=== PATIENT | male | born 1990 | race Caucasian/White ===

== ENCOUNTER 2016-04-04 03:05 | Emergency (ER) | payer OTHER ==
[2016-04-04 03:19] VITALS: BP 131/78; TEMP 98.7; BMI 45.6
--- NOTE | 2016-04-04 03:47 | PDOC ---
History of Present Illness - General History Source: Patient Exam Limitations: No Limitations - History of Present Illness Initial Comments: 04/04/16 04:56 The patient is a 26 year old male with significant past medical history of multiple sclerosis diagnosed at age 4 and last flare up was 2 years ago that involved double vision who presents to the ED with 1 day of right sided unilateral contractions of the face, arm, and leg. Patient reports at 9:30 yesterday morning he had a wisdom tooth extraction. He was given local anesthetics both as an injection in his right cheek and as an IV in his right hand. At midnight he noted his first episode of right sided contraction that resulted in numbness and tingling of the face and hand with prolonged numbness in right hand. Since the first episode, he has had 4 episodes, including two of them here in the ER. The patient denies fever, chills, cough, SOB, chest pain, and palpitations. The patient denies abdominal pain, nausea, vomiting, and diarrhea. Allergies: glatiramer acetate Social History: No alcohol, tobacco, or drug use reported. Past Surgical History: hernia repair PCP: Dr. Mily Armstrong Neuro: Dr. Alba (has not seen in over a year) <Michelle Bejarano - Last Filed: 04/04/16 05:34> - General History Source: Patient <FernandoBob boles - Last Filed: 04/04/16 19:33> - General Chief Complaint: Toothache Stated Complaint: NUMBNESS ON RIGHT SIDE Time Seen by Provider: 04/04/16 03:47 Past History <Michelle Bejarano - Last Filed: 04/04/16 05:34> - Surgical History Abdominal Surgery: Yes (HERNIA) - Immunization History Immunization Up to Date: Yes (2011) - Psycho/Social/Smoking Cessation Hx Anxiety: No Suicidal Ideation: No Smoking Status: Yes Smoking History: Never smoked Have you smoked in the past 12 months: No Number of Cigarettes Smoked Daily: 1 Information on smoking cessation initiated: No 'Breaking Loose' booklet given: 10/26/13 Hx Alcohol Use: No Drug/Substance Use Hx: No <Bob Sanchez - Last Filed: 04/04/16 19:33> - Past Medical History Allergies/Adverse Reactions: Allergies Allergy/AdvReac Type Severity Reaction Status Date / Time glatiramer acetate AdvReac Verified 04/04/16 03:17 [From Copaxone] Home Medications: Ambulatory Orders Interferon Beta-1B [Betaseron] 0.3 mg SQ Q48H 10/26/13 Acetaminophen [Tylenol .Regular Strength -] 325 mg PO Q4H PRN #0 tablet Ibuprofen [Motrin -] 400 mg PO Q8H PRN #0 tablet 10/28/13 Diazepam [Valium] 5 mg PO Q8H PRN #21 tablet MDD 3 04/04/16 Review of Systems - Review of Systems Able to Perform ROS?: Yes Comments:: 04/04/16 04:56 CONSTITUTIONAL: Absent: fever, no chills, no fatigue EYES: Absent: visual changes ENT: Absent: ear pain, no sore throat CARDIOVASCULAR: Absent: chest pain, no palpitations RESPIRATORY: Absent: cough, no SOB GI: Absent: abdominal pain, no nausea, no vomiting, no constipation, no diarrhea GENITOURINARY: Absent: dysuria, no frequency, no hematuria MUSKULOSKELETAL: +right sided unilateral contractions of the face, arm, and leg Absent: back pain SKIN: Absent: rash NEURO: Absent: headache <Michelle Bejarano - Last Filed: 04/04/16 05:34> *Physical Exam - Vital Signs Last Vital Signs Temp Pulse Resp BP Pulse Ox 98.7 F 75 18 131/78 100 04/04/16 03:14 04/04/16 03:14 04/04/16 03:14 04/04/16 03:14 04/04/16 03:14 - Physical Exam Comments: 04/04/16 04:56 GENERAL: Pt is morbidly obese. Well-appearing, well-nourished. No apparent distress. HEENT: Normocephalic, atraumatic. PERRL, EOM intact. CARDIOVASCULAR: Normal S1, S2. Regular rate and rhythm. PULMONARY: Clear to auscultation bilaterally. ABDOMEN: Soft, non-distended, non-tender. EXTREMITIES: Normal ROM in all four extremities. No gross deformities. SKIN: Warm, dry. No rash NEUROLOGICAL: No focal neurological deficits. <Michelle Bejarano - Last Filed: 04/04/16 05:34> - Vital Signs Last Vital Signs Temp Pulse Resp BP Pulse Ox 98.7 F 75 18 131/78 100 04/04/16 03:14 04/04/16 03:14 04/04/16 03:14 04/04/16 03:14 04/04/16 03:14 <Bob Sanchez - Last Filed: 04/04/16 19:33> ED Treatment Course - RADIOLOGY Radiograph Interpretation: 04/04/16 05:34 EXAM: CT brain without contrast Reviewed by Imaging protection engineer: FINDINGS: No acute intracranial abnormality. No bleed. No visible infarct or mass. <Michelle Bejarano - Last Filed: 04/04/16 05:34> - LABORATORY CBC & Chemistry Diagram: 04/04/16 05:17 04/04/16 05:17 <Bob Sanchez - Last Filed: 04/04/16 19:33> Medical Decision Making - Medical Decision Making 04/04/16 19:33 Dr. Sanchez: The scribe's documentation has been prepared under my direction and personally reviewed by me in its entirery. I confirm that the note above accurately reflects all work, treatment, procedures, and medical decision making performed by me. <Bob Sanchez - Last Filed: 04/04/16 19:33> *DC/Admit/Observation/Transfer - Attestations Scribe Attestion: 04/04/16 04:56 Documentation prepared by Michelle Bejarano, acting as diagnostic medical sonographer for Bob Sanchez MD <Michelle Bejarano - Last Filed: 04/04/16 05:34> - Discharge Dispostion Admit: No <Bob Sanchez - Last Filed: 04/04/16 19:33> Diagnosis at time of Disposition: Multiple sclerosis - Discharge Dispostion Disposition: HOME - Prescriptions Prescriptions: Diazepam [Valium] 5 mg PO Q8H PRN #21 tablet MDD 3 PRN Reason: Pain - Referrals Referrals: Mily Armstrong MD [Primary Care Provider] - Gokul Lo MD [Staff Physician] - - Patient Instructions Printed Discharge Instructions: DI for Anxiety -- Adult Additional Instructions: Return to the emergency department immediately with ANY new, persistent or worsening symptoms. You MUST call and follow up with your doctor tomorrow. Please make sure your doctor reviews the results of your emergency department evaluation.
[2016-04-04 06:29] LABS: BASOPHIL 0.6 % (0-2.0); EOSINOPHIL 5.5 % (0-4.5); MCH 29.2 pg (25.7-33.7); MEAN CELL VOLUME 88.4 fl (80-96); MEAN PLT VOLUME 7.9 fl (7.5-11.1); NEUTROPHILS 54.3 % (42.8-82.8); PLATELET COUNT 332 K/MM3 (134-434); RDW 13.2 % (11.9-15.9); WHITE BLOOD COUNT 9.8 K/mm3 (4.0-10.0)
[2016-04-04] MEDS ORDERED: diazePAM 5 MG TABLET PO ONE (06:52)
--- NOTE | 2016-04-04 07:11 | PDOC ---
*Physical Exam - Vital Signs Last Vital Signs Temp Pulse Resp BP Pulse Ox 98.7 F 75 18 131/78 100 04/04/16 03:14 04/04/16 03:14 04/04/16 03:14 04/04/16 03:14 04/04/16 03:14 - Physical Exam Comments: 04/04/16 07:09 Sign-out received from outgoing Emergency Physician Pt interviewed and examined Both he and his significant other are reporting that he has had increased anxiety over the past several months, and that he also has felt "tight all over, " primarily in the shoulders, but also in the upper and lower extremities. It tends to be more severe on the right side. They have not seen their neurologist for this, but do have an appointment next week Ancillary studies reviewed Clinical impression: Anxiety Muscle spasm, likely secondary to multiple sclerosis I discussed the physical exam findings, ancillary test results and final diagnoses with the patient. I answered all of the patient's questions. The patient was satisfied with the care received and felt comfortable with the discharge plan and treatment plan. The patient will call their primary care physician within 24 hours to arrange follow-up and will return to the Emergency Department with any new, persistent or worsening symptoms. ED Treatment Course - LABORATORY CBC & Chemistry Diagram: 04/04/16 05:17 04/04/16 05:17 - ADDITIONAL ORDERS Additional order review: 04/04/16 05:17 RBC 5.10 MCV 88.4 MCHC 33.0 RDW 13.2 MPV 7.9 Neutrophils % 54.3 D Lymphocytes % 31.2 D Monocytes % 8.4 Eosinophils % 5.5 H Basophils % 0.6 *DC/Admit/Observation/Transfer Diagnosis at time of Disposition: Multiple sclerosis - Discharge Dispostion Disposition: HOME - Prescriptions Prescriptions: Diazepam [Valium] 5 mg PO Q8H PRN #21 tablet MDD 3 PRN Reason: Pain - Referrals Referrals: Gokul Lo MD [Staff Physician] - Mily Armstrong MD [Primary Care Provider] - - Patient Instructions Printed Discharge Instructions: DI for Anxiety -- Adult Additional Instructions: Return to the emergency department immediately with ANY new, persistent or worsening symptoms. You MUST call and follow up with your doctor tomorrow. Please make sure your doctor reviews the results of your emergency department evaluation. - Post Discharge Activity
[2016-04-04] MEDS ORDERED: diazePAM 5 MG TABLET ONE (07:14)
[2016-04-04 07:40] VITALS: PULSE 92
[2016-04-04 08:05] LABS: ALBUMIN 4.1 g/dl (3.4-5.0); ALK PHOS 82 U/L (45-117); ANION GAP 7 (8-16); BILIRUBIN,TOTAL 0.4 mg/dL (0.2-1.0); CALCIUM 9.1 mg/dL (8.5-10.1); CO2 27 mmol/L (21-32); CREATININE 1.1 mg/dL (0.7-1.3); GLUCOSE,RANDOM 95 mg/dL (74-106); MAGNESIUM 2.3 mg/dL (1.8-2.4); SGOT/AST 31 U/L (15-37); SGPT/ALT 52 U/L (12-78); TOT PROT 8.1 g/dl (6.4-8.2)
== END 2016-04-04 08:34 | disposition home or self-care (01) ==
LOC: JER 03:05
DX: K08.89 Other specified disorders of teeth and supporting structures (principal); G35 Multiple sclerosis
CPT/HCPCS: 36415; 70450-TC; 80053; 83735; 85025; 99283-25

== ENCOUNTER 2017-09-21 20:10 | Inpatient (IN) | payer OTHER ==
--- NOTE | 2017-09-21 21:56 | PDOC ---
History of Present Illness <Susannah Calderon - Last Filed: 09/22/17 00:58> - General History Source: Patient Exam Limitations: No Limitations - History of Present Illness Initial Comments: 09/22/17 01:55 The patient is a 27-year-old male with PMH of MS (on remission) and obesity presents to the ED c/o R. arm swelling for the past 3-4 days. Patient presents with a worsening swelling/redness w/ pain to the R. posterior arm radiating to the R. lateral breast, initially appeared as a cyst, which progressed. The patient reports the pain is aggravated by movement or touch, no relief noted with gold luna powder or ibuprofen. The patient reports an acute onset of subjective fever since today. Patient reports a similar incident in the past s/ p falling down the stairs, was seen at the ED. The patient states the provider made an incision near the buttock region and drained the clot, reports the procedure was called honeycomb bite. Patient reports a recent flare-up of MS to the joints, states he had trouble with ambulation and had to use a cane for an assist. Patient reports he was treated with 4 days IV steroids followed by 10 days pills. Denies chills, cough or a headache. Denies chest pain, shortness of breath or palpitations. Denies abdominal pain, back pain or neck pain. Denies dysuria, hematuria, frequency or urgency to urinate. Denies nausea or vomiting. Denies diarrhea or constipation. Allergies: interferon beta-1b and glatiramer acetate Surgical history: Hernia Repair (in 9th grade) and abcess removed (middle school age). Social history: None reported. PCP: Dr. Vito Armstrong <Marie Belle - Last Filed: 09/22/17 02:09> - General Chief Complaint: SIRS, Suspected/Possible Stated Complaint: RASH Time Seen by Provider: 09/21/17 21:56 Past History - Past Medical History COPD: No Other medical history: MS,obesity - Surgical History Abdominal Surgery: Yes (HERNIA) GI Surgery: Yes (Hernia Repair) - Immunization History Immunization Up to Date: Yes (2011) - Suicide/Smoking/Psychosocial Hx Smoking Status: Yes Smoking History: Never smoked Have you smoked in the past 12 months: No Number of Cigarettes Smoked Daily: 1 'Breaking Loose' booklet given: 10/26/13 Hx Alcohol Use: No Drug/Substance Use Hx: No Substance Use Type: None <Susannah Calderon - Last Filed: 09/22/17 00:58> <Marie Belle - Last Filed: 09/22/17 02:09> - Past Medical History Allergies/Adverse Reactions: Allergies Allergy/AdvReac Type Severity Reaction Status Date / Time interferon beta-1b Allergy Verified 09/21/17 20:23 [From Betaseron] glatiramer acetate AdvReac Verified 04/04/16 03:17 [From Copaxone] Home Medications: Ambulatory Orders Interferon Beta-1B [Betaseron] 0.3 mg SQ Q48H 10/26/13 Acetaminophen [Tylenol .Regular Strength -] 325 mg PO Q4H PRN #0 tablet Ibuprofen [Motrin -] 400 mg PO Q8H PRN #0 tablet 10/28/13 Diazepam [Valium] 5 mg PO Q8H PRN #21 tablet MDD 3 04/04/16 Review of Systems - Review of Systems Able to Perform ROS?: Yes Comments:: 09/22/17 02:00 GENERAL/CONSTITUTIONAL: No fever or chills. No weakness. HEAD, EYES, EARS, NOSE AND THROAT: No change in vision. No ear pain or discharge. No sore throat. CARDIOVASCULAR: No chest pain or shortness of breath. RESPIRATORY: No cough, wheezing, or hemoptysis. GASTROINTESTINAL: No nausea, vomiting, diarrhea or constipation. GENITOURINARY: No dysuria, frequency, or change in urination. MUSCULOSKELETAL: No joint or muscle swelling or pain. No neck or back pain. SKIN: No rash EXTREMITY: (+) R. arm swelling/redness and pain. NEUROLOGIC: No headache, vertigo, loss of consciousness, or change in strength/ sensation. ENDOCRINE: No increased thirst. No abnormal weight change. HEMATOLOGIC/LYMPHATIC: No anemia, easy bleeding, or history of blood clots. ALLERGIC/IMMUNOLOGIC: No hives or skin allergy. <Marie Belle - Last Filed: 09/22/17 02:09> *Physical Exam - Vital Signs Last Vital Signs Temp Pulse Resp BP Pulse Ox 100.1 F H 111 H 20 149/119 98 09/21/17 20:14 09/21/17 20:14 09/21/17 20:14 09/21/17 20:14 09/21/17 20:14 <Susannah Calderon - Last Filed: 09/22/17 00:58> - Vital Signs Last Vital Signs Temp Pulse Resp BP Pulse Ox 100.1 F H 111 H 20 149/119 98 09/21/17 20:14 09/21/17 20:14 09/21/17 20:14 09/21/17 20:14 09/21/17 20:14 - Physical Exam Comments: 09/22/17 01:59 GENERAL: Awake, alert, and fully oriented, in no acute distress HEAD: No signs of trauma EYES: PERRLA, EOMI, sclera anicteric, conjunctiva clear ENT: Auricles normal inspection, hearing grossly normal, nares patent, oropharynx clear without exudates. Moist mucosa NECK: Normal ROM, supple, no lymphadenopathy, JVD, or masses LUNGS: Breath sounds equal, clear to auscultation bilaterally. No wheezes, and no crackles HEART: Regular rate and rhythm, normal S1 and S2, no murmurs, rubs or gallops ABDOMEN: Soft, nontender, normoactive bowel sounds. No guarding, no rebound. No masses EXTREMITIES: (+)Cellulitis of the L. axilla, primarily to the mid-axillary to the posterior, going around to the back. Well demarcated around the cellulitis. Pain and swelling throughout the adnexa. Rest of the extremity: Normal range of motion, no edema. No clubbing or cyanosis. No cords, erythema, or tenderness NEUROLOGICAL: Cranial nerves II through XII grossly intact. Normal speech, normal gait SKIN: Warm, Dry, normal turgor, no rashes or lesions noted. <Marie Belle - Last Filed: 09/22/17 02:09> Heart Score/ECG Review - ECG Impressions Comment:: 09/22/17 02:[address] Calderon at 23:39 Sinus tachycardia with Vent. rate of 104 bpm, LA interval of 134 ms, QRS duration 84 ms, QT/QTc of 314/418 ms and P-R-T axes (26)(54)(22). <Marie Belle - Last Filed: 09/22/17 02:09> ED Treatment Course - LABORATORY CBC & Chemistry Diagram: 09/21/17 22:57 07/01/18 22:57 <Susannah Calderon - Last Filed: 09/22/17 00:58> - LABORATORY CBC & Chemistry Diagram: 09/21/17 22:57 09/21/17 22:57 - ADDITIONAL ORDERS Additional order review: Laboratory Results 09/21/17 09/21/17 09/21/17 22:57 22:57 00:01 Sodium 137 Potassium 4.2 Chloride 102 Carbon Dioxide 30 Anion Gap 5 L BUN 12 Creatinine 0.9 Creat Clearance w eGFR > 60 Random Glucose 92 Lactic Acid 1.4 Calcium 8.5 Total Bilirubin 0.5 AST 40 H D ALT 72 D Alkaline Phosphatase 93 Creatine Kinase 114 Troponin I < 0.02 Total Protein 6.8 Albumin 2.8 L 09/21/17 22:57 RBC 4.63 MCV 89.4 MCHC 32.7 RDW 14.1 MPV 8.1 Neutrophils % 78.9 D Lymphocytes % 9.7 D Monocytes % 9.1 Eosinophils % 1.9 Basophils % 0.4 - Medications Given in the ED: ED Medications Discontinued Medications Generic Name Dose Route Start Last Admin Trade Name Jes PRN Reason Stop Dose Admin Acetaminophen 1,000 mg 09/21/17 22:56 09/21/17 23:04 Ofirmev Injection - IVPB 09/21/17 22:57 1,000 mg ONCE ONE Administration Ampicillin Sodium/Sulbactam 100 mls @ 200 mls/hr 09/21/17 23:13 09/21/17 23: 47 Sodium 3 gm/ Sodium Chloride IVPB 09/21/17 23:42 200 mls/hr ONCE ONE Administration Vancomycin HCl 1,000 mg/ 250 mls @ 250 mls/hr 09/21/17 23:13 09/21/17 23:27 Dextrose IVPB 09/22/17 00:12 250 mls/hr ONCE ONE Administration Protocol Morphine Sulfate 2 mg 09/21/17 23:13 09/21/17 23:27 Morphine Injection - IVPUSH 09/21/17 23:14 2 mg ONCE ONE Administration <Marie Belle - Last Filed: 09/22/17 02:09> *DC/Admit/Observation/Transfer - Discharge Dispostion Decision to Admit order: Yes <Susannah Calderon - Last Filed: 09/22/17 00:58> - Attestations Scribe Attestion: 09/22/17 01:55 Documentation prepared by Marie Belle, acting as medical fee clerk for Susannah Calderon MD. <Maire Belle - Last Filed: 09/22/17 02:09> Diagnosis at time of Disposition: Cellulitis, Axillary hidradenitis suppurativa - Discharge Dispostion Condition at time of disposition: Guarded
[2017-09-21] MEDS ORDERED: ACETAMINOPHEN 1000 MG/100 ML VIAL (NON FORMULARY) IVPB ONE (22:56)
[2017-09-21] MEDS ORDERED: ACETAMINOPHEN INJECTION 100 ML IVPB ONE (23:06)
[2017-09-21 23:07] LABS: BASO % 0.4 % (0-2.0); EOS % 1.9 % (0-4.5); HEMATOCRIT 41.4 % (35.4-49); HEMOGLOBIN 13.5 GM/dL (11.7-16.9); LYMPH % 9.7 % (8-40); MCH 29.2 pg (25.7-33.7); MCHC 32.7 g/dl (32.0-35.9); MEAN CELL VOLUME 89.4 fl (80-96); MEAN PLT VOLUME 8.1 fl (7.5-11.1); MONO % 9.1 % (3.8-10.2); NEUT % 78.9 % (42.8-82.8); PLATELET COUNT 278 K/MM3 (134-434); RBC 4.63 M/mm3 (4.00-5.60); RDW 14.1 % (11.9-15.9); WHITE BLOOD COUNT 24.6 K/mm3 (4.0-10.0)
[2017-09-21] MEDS ORDERED: morphine CARPU-JECT 2 MG/1 ML DISP.SYRIN IVPUSH ONE (23:13)
[2017-09-21] MEDS ORDERED: AMPICILLIN NA/SULBACTAM NA 3 GM in SODIUM CHLORIDE 100 ML IVPB ONE (23:13)
[2017-09-21] MEDS ORDERED: VANCOMYCIN 1,000 MG in DEXTROSE 5%-WATER - 250 ML IVPB ONE (23:13)
[2017-09-21] MEDS ORDERED: ONDANSETRON 4 MG/2 ML VIAL ONE (23:20)
[2017-09-21] MEDS ORDERED: VANCOMYCIN 1 GRAM (PRE-DOCKED) 1,000 MG/250 ML BAG IVPB ONE (23:20)
[2017-09-21] MEDS ORDERED: morphine SULFATE 4 MG/ML VIAL ONE (23:20)
[2017-09-21 23:26] LABS: ALBUMIN 2.8 g/dl (3.4-5.0); ALK PHOS 93 U/L (45-117); ANION GAP 5 (8-16); BILIRUBIN,TOTAL 0.5 mg/dL (0.2-1.0); BLOOD UREA NITROGEN 12 mg/dL (7-18); CALCIUM 8.5 mg/dL (8.5-10.1); CHLORIDE 102 mmol/L (98-107); CO2 30 mmol/L (21-32); CREATININE 0.9 mg/dL (0.7-1.3); GLUCOSE,RANDOM 92 mg/dL (74-106); POTASSIUM 4.2 mmol/L (3.5-5.1); SGOT/AST 40 U/L (15-37); SGPT/ALT 72 U/L (12-78); SODIUM 137 mmol/L (136-145); TOT PROT 6.8 g/dl (6.4-8.2)
[2017-09-21 23:50] LABS: PLATELET ESTIMATE ADEQUATE
[2017-09-22] MEDS ORDERED: VANCOMYCIN 1,250 MG in DEXTROSE 5%-WATER - 250 ML IVPB ONE (01:44)
--- NOTE | 2017-09-22 01:54 | HP ---
CHIEF COMPLAINT: redness / pain to right axilla PCP: Nathaniel HISTORY OF PRESENT ILLNESS: This is a 27 year old male with a significant past medical history of MS who is s/p high dose steroid treatment 2 weeks ago who presented to the ED with a 5-6 day history of redness, pain and swelling to right axilla. Pt reports initially the axilla was only a little red and then it slowly progressed until 2 days ago it was bright red with increased swelling and pain. He also reports "blisters" came out on it and one "popped" today. He reports fever 101+ today. ER course was notable for: (1) WBC 24.6 (2) T 100.1, P 111 (3) given vanc 1g and unasyn 3g Recent Travel: pt denies PAST MEDICAL HISTORY: MS, obesity, abscess buttock 2013 requiring I&D PAST SURGICAL HISTORY: I&D buttock 2013 right inguinal hernia repair age 11 Social History: Smoking: pt denies Alcohol: 3x per year Drugs: daily 3-4 times daily marijuana use Family History: mother alive and well father s/p [place] in his 50s, CHF one brother with no medical problems Allergies interferon beta-1b [From Betaseron] Allergy (Verified 09/21/17 20:23) glatiramer acetate [From Copaxone] Adverse Reaction (Verified 04/04/16 03:17) HOME MEDICATIONS: 3 Medication Instructions Recorded Interferon Beta-1B [Betaseron] 0.3 mg SQ Q48H 10/26/13 Acetaminophen [Tylenol .Regular 325 mg PO Q4H PRN #0 tablet 10/28/13 Strength -] Ibuprofen [Motrin -] 400 mg PO Q8H PRN #0 tablet 10/28/13 Diazepam [Valium] 5 mg PO Q8H PRN #21 tablet MDD 3 04/04/16 REVIEW OF SYSTEMS CONSTITUTIONAL: fever Absent: chills, diaphoresis, generalized weakness, malaise, loss of appetite, weight change HEENT: Absent: rhinorrhea, nasal congestion, throat pain, throat swelling, difficulty swallowing, mouth swelling, ear pain, eye pain, visual changes CARDIOVASCULAR: Absent: chest pain, syncope, palpitations, irregular heart rate, lightheadedness , peripheral edema RESPIRATORY: Absent: cough, shortness of breath, dyspnea with exertion, orthopnea, wheezing, stridor, hemoptysis GASTROINTESTINAL: Absent: abdominal pain, abdominal distension, nausea, vomiting, diarrhea, constipation, melena, hematochezia GENITOURINARY: Absent: dysuria, frequency, urgency, hesitancy, hematuria, flank pain, genital pain MUSCULOSKELETAL: Absent: myalgia, arthralgia, joint swelling, back pain, neck pain SKIN: Present: pain, swelling, redness right axilla Absent: rash, itching, pallor HEMATOLOGIC/IMMUNOLOGIC: Absent: easy bleeding, easy bruising, lymphadenopathy, frequent infections ENDOCRINE: Absent: unexplained weight gain, unexplained weight loss, heat intolerance, cold intolerance NEUROLOGIC: Absent: headache, focal weakness or paresthesias, dizziness, unsteady gait, seizure, mental status changes, bladder or bowel incontinence PSYCHIATRIC: Absent: anxiety, depression, suicidal or homicidal ideation, hallucinations. PHYSICAL EXAMINATION Vital Signs - 24 hr 3 09/21/17 20:14 Temperature 100.1 F H Pulse Rate 111 H Respiratory 20 Rate Blood Pressure 149/119 O2 Sat by Pulse 98 Oximetry (%) GENERAL: Awake, alert, and fully oriented, in no acute distress. HEAD: Normal with no signs of trauma. EYES: Pupils equal, round and reactive to light, extraocular movements intact, sclera anicteric, conjunctiva clear. No lid lag. EARS, NOSE, THROAT: Ears normal, nares patent, oropharynx clear without exudates. Moist mucous membranes. NECK: Normal range of motion, supple without lymphadenopathy, JVD, or masses. LUNGS: Breath sounds equal, clear to auscultation bilaterally. No wheezes, and no crackles. No accessory muscle use. HEART: Regular rate and rhythm, normal S1 and S2 without murmur, rub or gallop. ABDOMEN: Soft, nontender, not distended, normoactive bowel sounds, no guarding, no rebound, no masses. No hepatomegaly or splenomegaly. MUSCULOSKELETAL: Normal range of motion at all joints. No bony deformities or tenderness. No CVA tenderness. UPPER EXTREMITIES: 2+ pulses, warm, well-perfused. No cyanosis. No clubbing. No peripheral edema. LOWER EXTREMITIES: 2+ pulses, warm, well-perfused. No calf tenderness. No peripheral edema. NEUROLOGICAL: Cranial nerves II-XII intact. Normal speech. Normal gait. PSYCHIATRIC: Cooperative. Good eye contact. Appropriate mood and affect. SKIN: Warm, dry, normal turgor, no rashes or lesions noted, normal capillary refill. right axilla with significant swelling, redness extending posteriorly to back with blisters Laboratory Results - last 24 hr 3 09/21/17 09/21/17 09/21/17 00:01 22:57 22:57 WBC 24.6 H RBC 4.63 Hgb 13.5 Hct 41.4 MCV 89.4 MCH 29.2 MCHC 32.7 RDW 14.1 Plt Count 278 MPV 8.1 Absolute Neuts (auto) 19.4 Total Counted 100 Neutrophils % 78.9 D Neutrophils % (Manual) 78.0 Band Neutrophils % 7.0 Lymphocytes % 9.7 D Lymphocytes % (Manual) 8.0 Monocytes % 9.1 Monocytes % (Manual) 4 Eosinophils % 1.9 Basophils % 0.4 Nucleated RBC % 0 Platelet Estimate Adequate Platelet Comment No clumping noted Sodium 137 Potassium 4.2 Chloride 102 Carbon Dioxide 30 Anion Gap 5 L BUN 12 Creatinine 0.9 Creat Clearance w eGFR > 60 Random Glucose 92 Lactic Acid 1.4 Calcium 8.5 Total Bilirubin 0.5 AST 40 H D ALT 72 D Alkaline Phosphatase 93 Creatine Kinase 114 Troponin I < 0.02 Total Protein 6.8 Albumin 2.8 L EC09/21/17 23:38 Sinus tachycardia vent rate 105, QTC 420 ECG read from machine shows acute ST elevation MO, ? MARY lead 2, but poor baseline, pt asymptomatic, will repeat ECG 09/22/17 02:32 Normal sinus rhythm vent rate 84, QTC [address]/T wave changes ASSESSMENT/PLAN: 27yM with PMH MS s/p recent steroid burst presented to the ED with redness, swelling and pain to right axilla. Sepsis secondary to Cellulitis/Abscess - given unasyn 3g IVPB, will change to zosyn next dose given immunocompromised status - given vanc 1g in ED will give additional 1250mg given pt weight 150kg - ID consult - surgical consult MS - pt states he is not taking his betaseron - follow up with primary neurologist as outpatient DVT PPX - low risk, pt fully ambulatory FEN - pt tolerating po fluids, hemodynamically stable, will hold off on IVF for now - bmp in am - regular diet as tolerated Dispo: pt admitted for further treatment. Visit type - Emergency Visit Emergency Visit: Yes ED Registration Date: 09/21/17 Care time: The patient presented to the Emergency Department on the above date and was hospitalized for further evaluation of their emergent condition. - New Patient This patient is new to me today: Yes Date on this admission: 09/22/17 - Critical Care Critical Care patient: No Hospitalist Screening - Colonoscopy Questionnaire Colonoscopy Questionnaire: Colonoscopy Questionnaire - Patient: 50 - 75 years old and never had a screening colonoscopy: No History of colon or rectal polyps, or CA: No History of IBD, Crohn's disease or UC: No History of abdominal radiation therapy as a child: No - Relative: 1 with colon or rectal CA, or polyps at age 60 or younger: No Colon or rectal CA diagnosed at age 45 or younger: No Multiple relatives with colon or rectal CA: No - Outcome: Screening Result: Negative Screen
[2017-09-22] MEDS: morphine SULFATE 4 MG/ML VIAL IVPUSH PRN ×4 (04:25→20:24)
[2017-09-22] MEDS ORDERED: morphine SULFATE 4 MG/ML VIAL ONE (04:26)
[2017-09-22] MEDS ORDERED: PIPERACILLIN/TAZOB 3.375 GM 3.375 GM in DEXTROSE 5%-WATER - 50 ML IVPB ONE (06:00)
[2017-09-22] MEDS ORDERED: PIPERACILLIN/TAZOBACTAM 3.375 GM VIAL IVPB ONE (06:08)
[2017-09-22] MEDS ORDERED: DEXTROSE 5%-WATER - 50 ML IVPB ONE (06:09)
[2017-09-22 08:17] LABS: BASO % 0.3 % (0-2.0); EOS % 2.6 % (0-4.5); HEMATOCRIT 39.3 % (35.4-49); HEMOGLOBIN 13.1 GM/dL (11.7-16.9); LYMPH % 8.5 % (8-40); MCHC 33.3 g/dl (32.0-35.9); MEAN CELL VOLUME 90.2 fl (80-96); MEAN PLT VOLUME 7.9 fl (7.5-11.1); MONO % 9.7 % (3.8-10.2); NEUT % 78.9 % (42.8-82.8); PLATELET COUNT 213 K/MM3 (134-434); RBC 4.36 M/mm3 (4.00-5.60); WHITE BLOOD COUNT 22.8 K/mm3 (4.0-10.0)
[2017-09-22 08:52] LABS: ANION GAP 7 (8-16); BLOOD UREA NITROGEN 11 mg/dL (7-18); CALCIUM 8.2 mg/dL (8.5-10.1); CHLORIDE 104 mmol/L (98-107); CO2 27 mmol/L (21-32); CREATININE 0.8 mg/dL (0.7-1.3); GLUCOSE,RANDOM 89 mg/dL (74-106); MAGNESIUM 2.1 mg/dL (1.8-2.4); PHOSPHOROUS 3.2 mg/dL (2.5-4.9); POTASSIUM 3.7 mmol/L (3.5-5.1); SODIUM 138 mmol/L (136-145)
--- NOTE | 2017-09-22 10:03 | PN ---
Progress Note (short form) - Note Progress Note: ID 27 year old morbidly obese man ( 352lbs) with extensive cellulitis with abscess under right axilla extending to his back Febrile leukocytosis and history of MS with recent steroids for 10 days now off. He is not diabetic Selected Entries 09/21/17 20:14 Temperature 100.1 F H Pulse Rate 111 H Respiratory 20 Rate Blood Pressure 149/119 Laboratory Tests 09/21/17 09/21/17 22:57 22:57 WBC 24.6 H Hgb 13.5 Hct 41.4 Band Neutrophils % 7.0 BUN 12 Creat Clearance w eGFR > 60 Total Bilirubin 0.5 AST 40 H D ALT 72 D Assessment Fluctuant abscess with extensive cellulitis of the right axilla spreading on to his back Morbid obesity Plan Blood cultures 2 CRP and ESR Surgical consult for I&D Vancomcyin 2grs q 12H Zosyn 4.5grs q 6 H Selvin JASMINE Problem List - Problems (1) Cellulitis Code(s): L03.90 - CELLULITIS, UNSPECIFIED (2) Abscess Code(s): L02.91 - CUTANEOUS ABSCESS, UNSPECIFIED (3) Obesity Code(s): E66.9 - OBESITY, UNSPECIFIED (4) Multiple sclerosis Code(s): G35 - MULTIPLE SCLEROSIS
--- NOTE | 2017-09-22 10:28 | CONSULT ---
Consult Consult Specialty:: General Surgery Referred by:: Nathaniel JASMINE Reason for Consultation:: Axillary Abscess - History of Present Illness Chief Complaint: Right chest wall infection History of Present Illness: 27 yo male with PMH Morbid obesity, MS who is s/p high dose steroid treatment 2 weeks ago who presented to the ED with a 5-6 day history of redness, pain and swelling to right right chest wall. He reports initially the axilla was only a little red and then it slowly progressed until 2 days ago it was bright red with increased swelling and pain. He also reports "blisters" came out on it and one "popped" today. He reports fever 101+ today. He has no personal history of similar infection or MRSA. We were asked to assess. - History Source History Provided By: Patient, Medical Record Limitations to Obtaining History: No Limitations - Past Medical History [employer]: Yes: Multiple Sclerosis Additional Medical History: Multiple sclerosis, Morbid obesity - Alcohol/Substance Use Hx Alcohol Use: No - Smoking History Smoking history: Never smoked Have you smoked in the past 12 months: No Aproximately how many cigarettes per day: 1 - Social History Place of : [facility] History of Recent Travel: No Home Medications - Allergies Allergies/Adverse Reactions: Allergies Allergy/AdvReac Type Severity Reaction Status Date / Time interferon beta-1b Allergy Verified 09/21/17 20:23 [From Betaseron] glatiramer acetate AdvReac Verified 04/04/16 03:17 [From Copaxone] - Home Medications Home Medications: Ambulatory Orders Interferon Beta-1B [Betaseron] 0.3 mg SQ Q48H 10/26/13 Acetaminophen [Tylenol .Regular Strength -] 325 mg PO Q4H PRN #0 tablet Ibuprofen [Motrin -] 400 mg PO Q8H PRN #0 tablet 10/28/13 Diazepam [Valium] 5 mg PO Q8H PRN #21 tablet MDD 3 04/04/16 Review of Systems - Review of Systems Constitutional: reports: Fever. denies: Chills Eyes: denies: Blurred Vision, Recent Change in Vision HENT: denies: Difficult Swallowing, Toothache Neck: denies: Decreased ROM, Swollen Glands Cardiovascular: denies: Chest Pain, Palpitations Respiratory: denies: Cough, SOB Gastrointestinal: denies: Abdominal Pain, Constipation, Diarrhea Genitourinary: denies: Discharge, Dysuria Musculoskeletal: reports: Muscle Weakness. denies: Extremity Pain Integumentary: reports: Erythema (Right chest wall per HPI) Neurological: denies: Confusion, Dizziness, Seizure, Syncope Endocrine: denies: Unexplained Weight Gain, Unexplained Weight Loss Hematology/Lymphatic: denies: Easily Bruised, Excessive Bleeding Psychiatric: denies: Anxiety, Depression Physical Exam Vital Signs: Vital Signs Temperature 100.1 F H 09/21/17 20:14 Pulse Rate 101 H 09/22/17 04:48 Respiratory Rate 18 09/22/17 04:48 Blood Pressure 140/89 09/22/17 04:48 O2 Sat by Pulse Oximetry (%) 99 09/22/17 04:48 Constitutional: Yes: No Distress, Calm, Obese Eyes: Yes: Conjunctiva Clear, EOM Intact HENT: Yes: Atraumatic, Normocephalic Neck: Yes: Supple, Trachea Midline Cardiovascular: Yes: Regular Rate and Rhythm, S1, S2 Respiratory: Yes: Regular, CTA Bilaterally, Other (Right lateral chest wall 20cm ^2 with central ruptured blister) Gastrointestinal: Yes: Normal Bowel Sounds, Soft, Abdomen, Obese. No: Tenderness ...Rectal Exam: No: Deferred Renal/: No: CVA Tenderness - Left, CVA Tenderness - Right Musculoskeletal: No: Muscle Pain, Muscle Weakness Extremities: No: Cool, Cyanosis Integumentary: Yes: Erythema (Right lateral chest wall/ lower axilla 20cm^2 indurated non-fluctant) Wound/Incision: Yes: Draining, Reddened, Excoriated, Unapproximated. No: Bleeding Neurological: Yes: Alert, Oriented Psychiatric: Yes: Alert, Oriented Labs: CBC, BMP 09/22/17 07:00 09/22/17 07:00 Imaging - Results Chest X-ray: Report Reviewed, Image Reviewed (right lateral chest well redness and swelling) Problem List - Problems (1) Cellulitis Assessment/Plan: 27 yo male MMP with agressive soft tissue infection right lateral chest wall. NPO and IVF hydration IV antibiotics per ID OR for debridement right chest wall abscess/ soft tissue infection Discussed with patient risks, benefits and alternatives of Incision and Drainage and debridement right chest wall abscess, including but not limited to bleeding, infection, injury to adjacent structures, leak or injury, intraabdominal abscess, need for further procedures, ; alternatives include antibiotics, delayed or no surgery - risks of this include failure of nonoperative therapy, perforation, sepsis, recurrence, . Patient desires to proceed with operation - will take to OR for above. Informed consent signed for same. Code(s): L03.90 - CELLULITIS, UNSPECIFIED Qualifiers: Site of cellulitis: trunk Site of cellulitis of trunk: chest wall Qualified Code(s): L03.313 - Cellulitis of chest wall (2) Fever Code(s): R50.9 - FEVER, UNSPECIFIED Qualifiers: Fever type: due to other condition Qualified Code(s): R50.81 - Fever presenting with conditions classified elsewhere (3) Obesity Code(s): E66.9 - OBESITY, UNSPECIFIED Qualifiers: Obesity type: due to excess calories Obesity classification: adult class 3 (BMI >= 40) Serious obesity comorbidity presence: with serious comorbidity Body mass index: BMI 50.0-59.9 Qualified Code(s): E66.01 - Morbid (severe) obesity due to excess calories; Z68.43 - Body mass index (BMI) 50-59.9 , adult (4) Abscess Code(s): L02.91 - CUTANEOUS ABSCESS, UNSPECIFIED (5) Immunocompromised Code(s): D84.9 - IMMUNODEFICIENCY, UNSPECIFIED (6) Multiple sclerosis Code(s): G35 - MULTIPLE SCLEROSIS
--- NOTE | 2017-09-22 10:35 | EKG ---
Test Reason : Blood Pressure : / mmHG Vent. Rate : 084 BPM Atrial Rate : 084 BPM P-R Int : 142 ms QRS Dur : 092 ms QT Int : 342 ms P-R-T Axes : 035 051 028 degrees QTc Int : 404 ms NORMAL SINUS RHYTHM NORMAL ECG WHEN COMPARED WITH ECG OF 21-SEP-2017 23:39, NO SIGNIFICANT CHANGE WAS FOUND Confirmed by ADI ROMERO MD ([id number]) on 09/22/2017 10:35:10 AM Referred By: Confirmed By:ADI ROMERO MD
--- NOTE | 2017-09-22 10:37 | EKG ---
Test Reason : Blood Pressure : / mmHG Vent. Rate : 104 BPM Atrial Rate : 104 BPM P-R Int : 134 ms QRS Dur : 084 ms QT Int : 318 ms P-R-T Axes : 026 054 022 degrees QTc Int : 418 ms SINUS TACHYCARDIA OTHERWISE NORMAL ECG WHEN COMPARED WITH ECG OF 28-JAN-2012 09:39, NO SIGNIFICANT CHANGE WAS FOUND Confirmed by ADI ROMERO MD ([id number]) on 09/22/2017 10:36:45 AM Referred By: Confirmed By:ADI ROMERO MD
--- NOTE | 2017-09-22 10:55 | PN ---
Progress Note, Physician History of Present Illness: pt seen/ examined. chart reviewed awake/ comfortable - Current Medication List Current Medications: Active Medications Piperacillin Sod/Tazobactam (Sod 4.5 gm/ Dextrose) 100 mls @ 200 mls/hr IVPB Q6H-IV NAVEEN; Protocol Vancomycin HCl 2,000 mg/ (Dextrose) 500 mls @ 200 mls/hr IVPB Q12H NAVEEN; Protocol Morphine Sulfate (Morphine Sulfate) 4 mg IVPUSH Q4H PRN PRN Reason: PAIN LEVEL 7 - 10 Last Admin: 09/22/17 08:38 Dose: 4 mg - Objective Vital Signs: Vital Signs Temperature 100.1 F H 09/21/17 20:14 Pulse Rate 101 H 09/22/17 04:48 Respiratory Rate 18 09/22/17 04:48 Blood Pressure 140/89 09/22/17 04:48 O2 Sat by Pulse Oximetry (%) 99 09/22/17 04:48 Constitutional: Yes: No Distress, Calm Eyes: Yes: Conjunctiva Clear Neck: Yes: Supple Cardiovascular: Yes: Regular Rate and Rhythm Respiratory: Yes: CTA Bilaterally Edema: No Integumentary: Yes: Other (Fluctuant abscess with extensive cellulitis of the right axilla spreading on to his back) Wound/Incision: Yes: Other (Fluctuant abscess with extensive cellulitis of the right axilla spreading on to his back) Neurological: Yes: Alert Labs: CBC, BMP 09/22/17 07:00 09/22/17 07:00 - ....Imaging Chest X-ray: Report Reviewed X-ray: Report Reviewed Problem List - Problems (1) Axillary hidradenitis suppurativa Code(s): L73.2 - HIDRADENITIS SUPPURATIVA (2) Cellulitis Code(s): L03.90 - CELLULITIS, UNSPECIFIED (3) Obesity Code(s): E66.9 - OBESITY, UNSPECIFIED (4) Abscess Code(s): L02.91 - CUTANEOUS ABSCESS, UNSPECIFIED (5) Immunocompromised Code(s): D84.9 - IMMUNODEFICIENCY, UNSPECIFIED (6) Multiple sclerosis Code(s): G35 - MULTIPLE SCLEROSIS Assessment/Plan Abx i/d and vac placement today f/u labs/ vanco levels dvt prophylaxis discussed with Dr. Holt and Surgeon today will follow
[2017-09-22] MEDS ORDERED: PIPERACILLIN/TAZOBACTAM 4.5 GM VIAL IVPB ONE ×3 (11:08→20:13)
[2017-09-22] MEDS ORDERED: DEXTROSE 5%-WATER 100 ML IVPB ONE ×3 (11:08→20:13)
[2017-09-22] MEDS: PIPERACILLIN/TAZOB 4.5 GM 4.5 GM in DEXTROSE 5%-WATER 100 ML IVPB SCH ×3 (11:16→20:26)
[2017-09-22 11:38] LABS: ANISOCYTOSIS 1+; MACROCYTOSIS 0; PLATELET ESTIMATE NORMAL
--- NOTE | 2017-09-22 13:34 | CONS ---
DATE OF CONSULTATION: DATE OF DICTATION: 09/22/2017 HISTORY: This is a morbidly obese 27-year-old male with a known history of multiple sclerosis who was admitted with painful swelling under his right axilla with redness extending towards his back present for several days. He denies any history of trauma but notes that he typically sweats profusely, and he weighs 350 pounds. He has no history of hidradenitis in the past and here was noted to have fever as well as a markedly elevated WBC count. The patient has multiple sclerosis and had a recent course of corticosteroids for 10 days. He is now off of steroids. He was given a dose of vancomycin here and a dose of Unasyn, and I am asked to see him for further evaluation. PAST MEDICAL HISTORY: Other than his history of MS, he has no other significant past medical history and is not diabetic. PAST SURGICAL HISTORY: Includes a hernia repair. CURRENT MEDICATIONS: Recent course of steroids. ALLERGIES: INTERFERON BETA-1B. SOCIAL HISTORY: . Nonsmoker. HIV status unknown. No history of drug use. FAMILY HISTORY: Noncontributory. REVIEW OF SYSTEMS: Respiratory: No cough or shortness of breath. Cardiac: No chest pain or palpitations. Gastrointestinal: No nausea, vomiting, or diarrhea. Genitourinary: No dysuria, hematuria, urinary frequency. PHYSICAL EXAMINATION: General: Reveals an alert, pleasant, heavy set male. Vital Signs: Temperature 100.1, pulse 111, blood pressure 150/119, respiratory rate 20, weight 352 pounds. Neck: Supple. Lungs: Clear to P and A. Heart: S1, S2. Regular rhythm without murmur. Abdomen: Obese, soft, nontender. Skin: Reveals an area of erythema under the right axilla with a tender, indurated, fluctuant center with extending erythema onto his back and chest all of which was tender to touch. DIAGNOSTIC DATA: White count 24.6, hemoglobin 13.5. Chemistries including renal function and liver enzymes within normal limits. ASSESSMENT: A 27-year-old male with multiple sclerosis, morbid obesity who presents with a large, fluctuant abscess of the right axilla with extending cellulitis, fever, and leukocytosis. Geographic history includes exposure to a cat at home with which he has regular contact. Most likely staphylococcus and streptococcus but would cover for gram-negative organisms including Pasteurella as well. PLAN: Vancomycin and Zosyn. Two sets of blood cultures. Surgical consultation for incision and drainage of abscess. ESR, CRP, and HIV testing. YEIMI CARR M.D. [id number]
[2017-09-22] MEDS ORDERED: VANCOMYCIN 2,000 MG in DEXTROSE 5%-WATER - 500 ML IVPB SCH (15:00)
[2017-09-22] MEDS ORDERED: ONDANSETRON 4 MG/2 ML VIAL IVPUSH PRN (17:13)
[2017-09-22] MEDS ORDERED: PROMETHAZINE HCL 25 MG/1 ML VIAL IVPUSH PRN (17:13)
[2017-09-22] MEDS ORDERED: LACTATED RINGERS SOLUTION 1,000 ML IV SCH (17:15)
[2017-09-22] MEDS ORDERED: MIDAZOLAM HCL 2 MG/2 ML SINGLE DOSE VIAL ONE (17:38)
[2017-09-22] MEDS ORDERED: PROPOFOL 20 ML ONE ×2 (17:38→18:09)
[2017-09-22] MEDS ORDERED: fentaNYL CITRATE 250 MCG/5 ML VIAL ONE (17:38)
[2017-09-22] MEDS ORDERED: LIDOCAINE HCL/PF 2% SDV 5ML VIAL ONE (17:41)
[2017-09-22] MEDS ORDERED: VANCOMYCIN 1,000 MG VIAL (RESTRICTED TO ID ONLY) IVPB ONE (17:50)
--- NOTE | 2017-09-22 18:49 | OP ---
Operative Note - Note: Operative Date: 09/22/17 Pre-Operative Diagnosis: right lateral chest wall abscess Operation: incison and drainage of right chest wall abscess Findings: large abscess with 60ml pus, right lateral chest wall, culture sent Post-Operative Diagnosis: Same as Pre-op Surgeon: Arnold Arreguin Anesthesiologist/[employer] [employer]: Sin Vásquez Anesthesia: General Estimated Blood Loss (mls): 20 Fluid Volume Replaced (mls): 400 Operative Report Dictated: Yes
[2017-09-23] MEDS ORDERED: PIPERACILLIN/TAZOBACTAM 4.5 GM VIAL IVPB ONE ×4 (02:09→20:31)
[2017-09-23] MEDS ORDERED: DEXTROSE 5%-WATER 100 ML IVPB ONE ×4 (02:10→20:31)
[2017-09-23] MEDS: morphine SULFATE 4 MG/ML VIAL IVPUSH PRN ×4 (02:20→21:23)
[2017-09-23] MEDS: VANCOMYCIN 2,000 MG in DEXTROSE 5%-WATER - 500 ML IVPB SCH ×2 (02:21→15:21)
[2017-09-23] MEDS: PIPERACILLIN/TAZOB 4.5 GM 4.5 GM in DEXTROSE 5%-WATER 100 ML IVPB SCH ×4 (02:21→21:22)
[2017-09-23 08:05] LABS: HEMATOCRIT 39.7 % (35.4-49); HEMOGLOBIN 13.2 GM/dL (11.7-16.9); LYMPH % 3.5 % (8-40); MCH 29.8 pg (25.7-33.7); MCHC 33.4 g/dl (32.0-35.9); MEAN CELL VOLUME 89.4 fl (80-96); MONO % 7.5 % (3.8-10.2); PLATELET COUNT 262 K/MM3 (134-434); RBC 4.44 M/mm3 (4.00-5.60); RDW 13.6 % (11.9-15.9); WHITE BLOOD COUNT 23.2 K/mm3 (4.0-10.0)
[2017-09-23 08:35] LABS: ALBUMIN 2.7 g/dl (3.4-5.0); ALK PHOS 100 U/L (45-117); ANION GAP 10 (8-16); BILIRUBIN,TOTAL 0.8 mg/dL (0.2-1.0); BLOOD UREA NITROGEN 14 mg/dL (7-18); CALCIUM 8.9 mg/dL (8.5-10.1); CHLORIDE 100 mmol/L (98-107); CO2 26 mmol/L (21-32); CREATININE 1.2 mg/dL (0.7-1.3); GLUCOSE,RANDOM 98 mg/dL (74-106); POTASSIUM 4.2 mmol/L (3.5-5.1); SGOT/AST 37 U/L (15-37); SGPT/ALT 69 U/L (12-78); SODIUM 136 mmol/L (136-145); TOT PROT 6.7 g/dl (6.4-8.2)
--- NOTE | 2017-09-23 09:30 | PN ---
Progress Note, Physician Chief Complaint: Right chest wall abscess History of Present Illness: 27 yo male with PMH Morbid obesity, MS who is s/p high dose steroid treatment 2 weeks ago who presented to the ED with a 5-6 day history of redness, pain and swelling to right right chest wall. No acute events overnight, Low grade fever. - Current Medication List Current Medications: Active Medications Enoxaparin Sodium (Lovenox -) 40 mg SQ DAILY NAVEEN Vancomycin HCl 2,000 mg/ (Dextrose) 500 mls @ 200 mls/hr IVPB Q12H NAVEEN; Protocol Last Admin: 09/23/17 02:21 Dose: 200 mls/hr Piperacillin Sod/Tazobactam (Sod 4.5 gm/ Dextrose) 100 mls @ 200 mls/hr IVPB Q6H-IV NAVEEN; Protocol Last Admin: 09/23/17 02:21 Dose: 200 mls/hr Morphine Sulfate (Morphine Sulfate) 4 mg IVPUSH Q4H PRN PRN Reason: PAIN LEVEL 7 - 10 Last Admin: 09/23/17 02:20 Dose: 4 mg - Objective Vital Signs: Vital Signs Temperature 98.4 F 09/23/17 06:13 Pulse Rate 83 09/23/17 06:13 Respiratory Rate 20 09/23/17 06:13 Blood Pressure 122/72 09/23/17 06:13 O2 Sat by Pulse Oximetry (%) 100 09/22/17 21:00 Vital Signs Period Temp Pulse Resp BP Sys/Leon Pulse Ox Last 24 Hr 98.4 F-99.9 F 83-109 14-20 122-151/70-97 96-100 Constitutional: Yes: No Distress, Calm, Obese Eyes: Yes: Conjunctiva Clear, EOM Intact HENT: Yes: Atraumatic, Normocephalic Neck: Yes: Supple, Trachea Midline Cardiovascular: Yes: Regular Rate and Rhythm, S1, S2 Gastrointestinal: Yes: Normal Bowel Sounds, Soft, Abdomen, Obese. No: Tenderness ...Rectal Exam: Yes: Deferred Genitourinary: No: CVA Tenderness - Left, CVA Tenderness - Right Breast(s): Yes: Skin Changes (right breast, extending from the anteriorly from the laterl surgical incison) Extremities: No: Cool, Cyanosis Integumentary: Yes: Erythema. No: Jaundice Wound/Incision: Yes: Dressing Removed (iodoform packing removed and VAC dressing initiated), Draining, Reddened (6cm of surrounding erythema), Unapproximated ([id number] oval curgical wound with seropurulent drainage.) Neurological: Yes: Alert, Oriented Psychiatric: Yes: Alert, Oriented Labs: CBC, BMP 09/23/17 06:15 09/23/17 06:15 Microbiology 09/21/17 22:57 Blood - Peripheral Venous Blood Culture - Preliminary NO GROWTH OBTAINED AFTER 24 HOURS, INCUBATION TO CONTINUE FOR 4 DAYS. 09/21/17 22:57 Blood - Peripheral Venous Blood Culture - Preliminary NO GROWTH OBTAINED AFTER 24 HOURS, INCUBATION TO CONTINUE FOR 4 DAYS. Problem List - Problems (1) Cellulitis Assessment/Plan: 27 yo male MMP with agressive soft tissue infection right lateral chest wall POD #1 s/p Incision and Drainage of Right lateral chest well abscess. Management per primary team IV antibiotics per ID f/u cultures VAC Dressing application Right lateral chest wall Frequency: every 3-5days Measurement: [id number] oval seropurulent drainage, with 6cm of surrounding erythema Dressing: small granulofoam, with VAC freedom Forms completed on chart will follow Discharge planning Code(s): L03.90 - CELLULITIS, UNSPECIFIED Qualifiers: Site of cellulitis: trunk Site of cellulitis of trunk: chest wall Qualified Code(s): L03.313 - Cellulitis of chest wall (2) Fever Code(s): R50.9 - FEVER, UNSPECIFIED Qualifiers: Fever type: due to other condition Qualified Code(s): R50.81 - Fever presenting with conditions classified elsewhere (3) Obesity Code(s): E66.9 - OBESITY, UNSPECIFIED Qualifiers: Obesity type: due to excess calories Obesity classification: adult class 3 (BMI >= 40) Serious obesity comorbidity presence: with serious comorbidity Body mass index: BMI 50.0-59.9 Qualified Code(s): E66.01 - Morbid (severe) obesity due to excess calories; Z68.43 - Body mass index (BMI) 50-59.9 , adult (4) Abscess Code(s): L02.91 - CUTANEOUS ABSCESS, UNSPECIFIED (5) Immunocompromised Code(s): D84.9 - IMMUNODEFICIENCY, UNSPECIFIED (6) Multiple sclerosis Code(s): G35 - MULTIPLE SCLEROSIS
[2017-09-23] MEDS ORDERED: ENOXAPARIN NA (PORCINE) 40 MG/0.4 ML DISP.SYRIN SQ SCH (10:00)
[2017-09-23] MEDS: ENOXAPARIN NA (PORCINE) 40 MG/0.4 ML DISP.SYRIN SQ SCH (10:10)
--- NOTE | 2017-09-23 11:10 | PN ---
Progress Note, Physician Chief Complaint: Pt. sitting comfortably on edge of bed, in good spirits. No GA complaints. - Current Medication List Current Medications: Active Medications Enoxaparin Sodium (Lovenox -) 40 mg SQ DAILY NAVEEN Last Admin: 09/23/17 10:10 Dose: 40 mg Vancomycin HCl 2,000 mg/ (Dextrose) 500 mls @ 200 mls/hr IVPB Q12H NAVEEN; Protocol Last Admin: 09/23/17 02:21 Dose: 200 mls/hr Piperacillin Sod/Tazobactam (Sod 4.5 gm/ Dextrose) 100 mls @ 200 mls/hr IVPB Q6H-IV NAVEEN; Protocol Last Admin: 09/23/17 10:10 Dose: 200 mls/hr Morphine Sulfate (Morphine Sulfate) 4 mg IVPUSH Q4H PRN PRN Reason: PAIN LEVEL 7 - 10 Last Admin: 09/23/17 10:10 Dose: 4 mg - Objective Vital Signs: Vital Signs Temperature 98.4 F 09/23/17 06:13 Pulse Rate 83 09/23/17 06:13 Respiratory Rate 20 09/23/17 06:13 Blood Pressure 122/72 09/23/17 06:13 O2 Sat by Pulse Oximetry (%) 100 09/22/17 21:00 Constitutional: Yes: Well Nourished, No Distress, Calm Musculoskeletal: Yes: WNL Neurological: Yes: WNL, Alert, Oriented Labs: CBC, BMP 09/23/17 06:15 09/23/17 06:15 Assessment/Plan POD#1 s/p I&D right axilla under GA. Doing well. D/C from anesthesia care.
--- NOTE | 2017-09-23 11:15 | PN ---
Progress Note, Physician Chief Complaint: pain has decreased - Current Medication List Current Medications: Active Medications Enoxaparin Sodium (Lovenox -) 40 mg SQ DAILY NAVEEN Last Admin: 09/23/17 10:10 Dose: 40 mg Vancomycin HCl 2,000 mg/ (Dextrose) 500 mls @ 200 mls/hr IVPB Q12H NAVEEN; Protocol Last Admin: 09/23/17 02:21 Dose: 200 mls/hr Piperacillin Sod/Tazobactam (Sod 4.5 gm/ Dextrose) 100 mls @ 200 mls/hr IVPB Q6H-IV NAVEEN; Protocol Last Admin: 09/23/17 10:10 Dose: 200 mls/hr Morphine Sulfate (Morphine Sulfate) 4 mg IVPUSH Q4H PRN PRN Reason: PAIN LEVEL 7 - 10 Last Admin: 09/23/17 10:10 Dose: 4 mg - Objective Vital Signs: Vital Signs Temperature 98.4 F 09/23/17 06:13 Pulse Rate 83 09/23/17 06:13 Respiratory Rate 20 09/23/17 06:13 Blood Pressure 122/72 09/23/17 06:13 O2 Sat by Pulse Oximetry (%) 100 09/22/17 21:00 Constitutional: Yes: No Distress Cardiovascular: Yes: Regular Rate and Rhythm Respiratory: Yes: CTA Bilaterally Gastrointestinal: Yes: Normal Bowel Sounds, Soft, Abdomen, Obese. No: Tenderness Edema: No Integumentary: Yes: Rash (right axillary and posterior erythema, warm, tender+ wound vac present) Labs: CBC, BMP 09/23/17 06:15 09/23/17 06:15 Problem List - Problems (1) Axillary hidradenitis suppurativa Code(s): L73.2 - HIDRADENITIS SUPPURATIVA (2) Fever Code(s): R50.9 - FEVER, UNSPECIFIED Qualifiers: Fever type: due to other condition Qualified Code(s): R50.81 - Fever presenting with conditions classified elsewhere (3) Obesity Code(s): E66.9 - OBESITY, UNSPECIFIED Qualifiers: Obesity type: due to excess calories Obesity classification: adult class 3 (BMI >= 40) Serious obesity comorbidity presence: with serious comorbidity Body mass index: BMI 50.0-59.9 Qualified Code(s): E66.01 - Morbid (severe) obesity due to excess calories; Z68.43 - Body mass index (BMI) 50-59.9 , adult (4) Abscess Code(s): L02.91 - CUTANEOUS ABSCESS, UNSPECIFIED (5) Immunocompromised Code(s): D84.9 - IMMUNODEFICIENCY, UNSPECIFIED (6) Multiple sclerosis Code(s): G35 - MULTIPLE SCLEROSIS Assessment/Plan PLAN IV antibiotics wound vac pain control DVT prophylaxis-- Lovenox
--- NOTE | 2017-09-23 14:02 | PN ---
Progress Note, Physician History of Present Illness: OOB in chair Reports less R upper back pain VAC in place Afebrile WBC remains elevated Cultures pending - Current Medication List Current Medications: Active Medications Enoxaparin Sodium (Lovenox -) 40 mg SQ DAILY NAVEEN Last Admin: 09/23/17 10:10 Dose: 40 mg Vancomycin HCl 2,000 mg/ (Dextrose) 500 mls @ 200 mls/hr IVPB Q12H NAVEEN; Protocol Last Admin: 09/23/17 02:21 Dose: 200 mls/hr Piperacillin Sod/Tazobactam (Sod 4.5 gm/ Dextrose) 100 mls @ 200 mls/hr IVPB Q6H-IV NAVEEN; Protocol Last Admin: 09/23/17 10:10 Dose: 200 mls/hr Morphine Sulfate (Morphine Sulfate) 4 mg IVPUSH Q4H PRN PRN Reason: PAIN LEVEL 7 - 10 Last Admin: 09/23/17 10:10 Dose: 4 mg - Objective Vital Signs: Vital Signs Temperature 98.8 F 09/23/17 10:00 Pulse Rate 84 09/23/17 10:00 Respiratory Rate 20 09/23/17 10:00 Blood Pressure 149/70 09/23/17 10:00 O2 Sat by Pulse Oximetry (%) 100 09/22/17 21:00 Constitutional: Yes: No Distress, Obese Eyes: Yes: Conjunctiva Clear Cardiovascular: Yes: Regular Rate and Rhythm, S1, S2 Respiratory: Yes: CTA Bilaterally Gastrointestinal: Yes: Normal Bowel Sounds, Soft, Abdomen, Obese. No: Tenderness Musculoskeletal: Yes: Other (R upper back erythematous, warm VAC in place) Labs: CBC, BMP 09/23/17 06:15 09/23/17 06:15 Assessment/Plan Cellulitis/ soft tissue abscess R upper back Await c/s Continue vancomycin/ zosyn
[2017-09-24] MEDS ORDERED: PIPERACILLIN/TAZOBACTAM 4.5 GM VIAL IVPB ONE ×3 (02:40→16:24)
[2017-09-24] MEDS ORDERED: PT OWN MED DRAWER 7, Y5N ONE (02:40)
[2017-09-24] MEDS ORDERED: DEXTROSE 5%-WATER 100 ML IVPB ONE ×3 (02:41→16:24)
[2017-09-24] MEDS: PIPERACILLIN/TAZOB 4.5 GM 4.5 GM in DEXTROSE 5%-WATER 100 ML IVPB SCH ×3 (02:50→16:26)
[2017-09-24] MEDS: VANCOMYCIN 2,000 MG in DEXTROSE 5%-WATER - 500 ML IVPB SCH ×2 (03:35→18:55)
[2017-09-24] MEDS: morphine SULFATE 4 MG/ML VIAL IVPUSH PRN ×3 (04:03→22:05)
--- NOTE | 2017-09-24 08:43 | PN ---
Progress Note, Physician Chief Complaint: ID Juan Alvarez Feels well though has pain related to operative site and VAC No fever - Current Medication List Current Medications: Active Medications Enoxaparin Sodium (Lovenox -) 40 mg SQ DAILY NAVEEN Last Admin: 09/23/17 10:10 Dose: 40 mg Vancomycin HCl 2,000 mg/ (Dextrose) 500 mls @ 200 mls/hr IVPB Q12H NAVEEN; Protocol Last Admin: 09/24/17 03:35 Dose: 200 mls/hr Piperacillin Sod/Tazobactam (Sod 4.5 gm/ Dextrose) 100 mls @ 200 mls/hr IVPB Q6H-IV NAVEEN; Protocol Last Admin: 09/24/17 08:36 Dose: 200 mls/hr Morphine Sulfate (Morphine Sulfate) 4 mg IVPUSH Q4H PRN PRN Reason: PAIN LEVEL 7 - 10 Last Admin: 09/24/17 08:36 Dose: 4 mg - Objective Vital Signs: Vital Signs Temperature 98.8 F 09/24/17 05:48 Pulse Rate 87 09/24/17 05:48 Respiratory Rate 18 09/24/17 05:48 Blood Pressure 118/64 09/24/17 05:48 O2 Sat by Pulse Oximetry (%) 100 09/23/17 21:00 Constitutional: Yes: Obese HENT: Yes: WNL, Atraumatic Neck: Yes: WNL, Supple Cardiovascular: Yes: Regular Rate and Rhythm, S1, S2 Respiratory: Yes: WNL, Regular, CTA Bilaterally Gastrointestinal: Yes: Soft. No: Tenderness, Tenderness, Epigastrium Integumentary: Yes: Other (right arm VAC site erythema resolving) Labs: CBC, BMP 09/23/17 06:15 09/23/17 06:15 Problem List - Problems (1) Cellulitis Code(s): L03.90 - CELLULITIS, UNSPECIFIED Qualifiers: Site of cellulitis: trunk Site of cellulitis of trunk: chest wall Qualified Code(s): L03.313 - Cellulitis of chest wall (2) Abscess Code(s): L02.91 - CUTANEOUS ABSCESS, UNSPECIFIED (3) Obesity Code(s): E66.9 - OBESITY, UNSPECIFIED Qualifiers: Obesity type: due to excess calories Obesity classification: adult class 3 (BMI >= 40) Serious obesity comorbidity presence: with serious comorbidity Body mass index: BMI 50.0-59.9 Qualified Code(s): E66.01 - Morbid (severe) obesity due to excess calories; Z68.43 - Body mass index (BMI) 50-59.9 , adult (4) Multiple sclerosis Code(s): G35 - MULTIPLE SCLEROSIS Assessment/Plan Microbiology 09/22/17 18:30 Abscess Gram Stain - Final 09/21/17 00:20 Urine - Urine Clean Catch Urine Culture - Final NO GROWTH OBTAINED 09/21/17 22:57 Blood - Peripheral Venous Blood Culture - Preliminary NO GROWTH OBTAINED AFTER 48 HOURS, INCUBATION TO CONTINUE FOR 3 DAYS. 09/21/17 22:57 Blood - Peripheral Venous Blood Culture - Preliminary NO GROWTH OBTAINED AFTER 48 HOURS, INCUBATION TO CONTINUE FOR 3 DAYS. Laboratory Tests 09/21/17 09/22/17 09/22/17 22:57 07:00 10:55 WBC 24.6 H 22.8 H Plt Count ESR BUN Creatinine C-Reactive Protein 8.7 H HIV 1&2 Antibody Screen HIV P24 Antigen 09/22/17 09/23/17 09/23/17 10:55 06:15 06:15 WBC 23.2 H Plt Count 262 D ESR 61 H BUN Creatinine C-Reactive Protein HIV 1&2 Antibody Screen Negative HIV P24 Antigen Negative 09/23/17 06:15 WBC Plt Count ESR BUN 14 Creatinine 1.2 C-Reactive Protein HIV 1&2 Antibody Screen HIV P24 Antigen Assessment Large cutaneous abscess drained though concerned regarding persistant leukocytosis Today CBC pending along with culture Clearly he looks and feels better Plan Continue Vancomycn and Zosyn pending c/s Vanco level pending Selvin JASMINE
--- NOTE | 2017-09-24 09:03 | PN ---
Progress Note, Physician Chief Complaint: Right chest wall abscess History of Present Illness: 27 yo male with PMH Morbid obesity, MS who is s/p high dose steroid treatment 2 weeks ago who presented to the ED with a 5-6 day history of redness, pain and swelling to right right chest wall. No acute events overnight, Low grade fever. - Current Medication List Current Medications: Active Medications Enoxaparin Sodium (Lovenox -) 40 mg SQ DAILY NAVEEN Last Admin: 09/23/17 10:10 Dose: 40 mg Vancomycin HCl 2,000 mg/ (Dextrose) 500 mls @ 200 mls/hr IVPB Q12H NAVEEN; Protocol Last Admin: 09/24/17 03:35 Dose: 200 mls/hr Piperacillin Sod/Tazobactam (Sod 4.5 gm/ Dextrose) 100 mls @ 200 mls/hr IVPB Q6H-IV NAVEEN; Protocol Last Admin: 09/24/17 08:36 Dose: 200 mls/hr Morphine Sulfate (Morphine Sulfate) 4 mg IVPUSH Q4H PRN PRN Reason: PAIN LEVEL 7 - 10 Last Admin: 09/24/17 08:36 Dose: 4 mg - Objective Vital Signs: Vital Signs Temperature 98.8 F 09/24/17 05:48 Pulse Rate 87 09/24/17 05:48 Respiratory Rate 18 09/24/17 05:48 Blood Pressure 118/64 09/24/17 05:48 O2 Sat by Pulse Oximetry (%) 100 09/23/17 21:00 Vital Signs Period Temp Pulse Resp BP Sys/Leon Pulse Ox Last 24 Hr 97.6 F-98.8 F 71-99 18-20 117-157/46-90 100 Constitutional: Yes: No Distress, Calm, Obese Eyes: Yes: Conjunctiva Clear, EOM Intact HENT: Yes: Atraumatic, Normocephalic Neck: Yes: Supple, Trachea Midline Cardiovascular: Yes: Regular Rate and Rhythm, S1, S2 Respiratory: Yes: Regular, CTA Bilaterally Gastrointestinal: Yes: Normal Bowel Sounds, Soft, Abdomen, Obese. No: Tenderness Genitourinary: No: CVA Tenderness - Left, CVA Tenderness - Right Extremities: No: Cool, Cyanosis Edema: No Peripheral Pulses WNL: Yes Wound/Incision: Yes: Clean/Dry, Dressing Dry and Intact Neurological: Yes: Alert, Oriented Psychiatric: Yes: Alert, Oriented Labs: CBC, BMP 09/23/17 06:15 09/23/17 06:15 Microbiology 09/22/17 18:30 Abscess Gram Stain - Final 09/22/17 18:30 Abscess Wound Culture - Preliminary Presumptive Mssa (Pbp2a Neg) 09/21/17 22:57 Blood - Peripheral Venous Blood Culture - Preliminary NO GROWTH OBTAINED AFTER 48 HOURS, INCUBATION TO CONTINUE FOR 3 DAYS. 09/21/17 22:57 Blood - Peripheral Venous Blood Culture - Preliminary NO GROWTH OBTAINED AFTER 48 HOURS, INCUBATION TO CONTINUE FOR 3 DAYS. 09/21/17 00:20 Urine - Urine Clean Catch Urine Culture - Final NO GROWTH OBTAINED Problem List - Problems (1) Cellulitis Assessment/Plan: 27 yo male MMP with agressive soft tissue infection right lateral chest wall POD #2 s/p Incision and Drainage of Right lateral chest well abscess. VAC dessing in place and draining ~50ml purulent, presumptive MSSA Management per primary team IV antibiotics per ID f/u cultures VAC Dressing application Right lateral chest wall Frequency: every 3-5days Measurement: [id number] oval seropurulent drainage, with 6cm of surrounding erythema Dressing: small granulofoam, with VAC freedom Forms completed on chart will follow Discharge planning Code(s): L03.90 - CELLULITIS, UNSPECIFIED Qualifiers: Site of cellulitis: trunk Site of cellulitis of trunk: chest wall Qualified Code(s): L03.313 - Cellulitis of chest wall (2) Fever Code(s): R50.9 - FEVER, UNSPECIFIED Qualifiers: Fever type: due to other condition Qualified Code(s): R50.81 - Fever presenting with conditions classified elsewhere (3) Obesity Code(s): E66.9 - OBESITY, UNSPECIFIED Qualifiers: Obesity type: due to excess calories Obesity classification: adult class 3 (BMI >= 40) Serious obesity comorbidity presence: with serious comorbidity Body mass index: BMI 50.0-59.9 Qualified Code(s): E66.01 - Morbid (severe) obesity due to excess calories; Z68.43 - Body mass index (BMI) 50-59.9 , adult (4) Abscess Code(s): L02.91 - CUTANEOUS ABSCESS, UNSPECIFIED (5) Immunocompromised Code(s): D84.9 - IMMUNODEFICIENCY, UNSPECIFIED (6) Multiple sclerosis Code(s): G35 - MULTIPLE SCLEROSIS
[2017-09-24] MEDS: ENOXAPARIN NA (PORCINE) 40 MG/0.4 ML DISP.SYRIN SQ SCH (09:30)
--- NOTE | 2017-09-24 12:24 | PN ---
Progress Note, Physician History of Present Illness: pt seen/ examined. chart reviewed awake/ comfortable pod # 2 s/p vac denies pain requesting sleeping pill - unable to sleep - says was taking ambien before. - Current Medication List Current Medications: Active Medications Enoxaparin Sodium (Lovenox -) 40 mg SQ DAILY NAVEEN Last Admin: 09/24/17 09:30 Dose: 40 mg Vancomycin HCl 2,000 mg/ (Dextrose) 500 mls @ 200 mls/hr IVPB Q12H NAVEEN; Protocol Last Admin: 09/24/17 03:35 Dose: 200 mls/hr Piperacillin Sod/Tazobactam (Sod 4.5 gm/ Dextrose) 100 mls @ 200 mls/hr IVPB Q6H-IV NAVEEN; Protocol Last Admin: 09/24/17 08:36 Dose: 200 mls/hr Morphine Sulfate (Morphine Sulfate) 4 mg IVPUSH Q4H PRN PRN Reason: PAIN LEVEL 7 - 10 Last Admin: 09/24/17 08:36 Dose: 4 mg - Objective Vital Signs: Vital Signs Temperature 98.8 F 09/24/17 05:48 Pulse Rate 87 09/24/17 05:48 Respiratory Rate 18 09/24/17 05:48 Blood Pressure 118/64 09/24/17 05:48 O2 Sat by Pulse Oximetry (%) 100 09/23/17 21:00 Constitutional: Yes: No Distress, Calm, Obese Eyes: Yes: Conjunctiva Clear Neck: Yes: Supple Cardiovascular: Yes: Regular Rate and Rhythm Respiratory: Yes: CTA Bilaterally Gastrointestinal: Yes: Soft Musculoskeletal: Yes: Other (s/p vac- right upper back-- decreased reddness/ swelling) Edema: No Neurological: Yes: Alert Psychiatric: Yes: Alert Labs: CBC, BMP 09/23/17 06:15 09/23/17 06:15 Problem List - Problems (1) Axillary hidradenitis suppurativa Code(s): L73.2 - HIDRADENITIS SUPPURATIVA (2) Cellulitis Code(s): L03.90 - CELLULITIS, UNSPECIFIED Qualifiers: Site of cellulitis: trunk Site of cellulitis of trunk: chest wall Qualified Code(s): L03.313 - Cellulitis of chest wall (3) Obesity Code(s): E66.9 - OBESITY, UNSPECIFIED Qualifiers: Obesity type: due to excess calories Obesity classification: adult class 3 (BMI >= 40) Serious obesity comorbidity presence: with serious comorbidity Body mass index: BMI 50.0-59.9 Qualified Code(s): E66.01 - Morbid (severe) obesity due to excess calories; Z68.43 - Body mass index (BMI) 50-59.9 , adult (4) Abscess Code(s): L02.91 - CUTANEOUS ABSCESS, UNSPECIFIED (5) Immunocompromised Code(s): D84.9 - IMMUNODEFICIENCY, UNSPECIFIED (6) Multiple sclerosis Code(s): G35 - MULTIPLE SCLEROSIS (7) Insomnia Code(s): G47.00 - INSOMNIA, UNSPECIFIED Assessment/Plan clinically better persistent leukocytosis. continue abx will prescribe ambien will follow
[2017-09-24] MEDS ORDERED: oxyCODONE HCL 5 MG TABLET PO ONE (17:51)
[2017-09-24] MEDS: ZOLPIDEM TARTRATE 5 MG TABLET PO PRN (22:01)
[2017-09-25] MEDS: CEFAZOLIN 2 GM/D5W 2 GM/50 ML ML IVPB SCH ×2 (01:07→10:32)
[2017-09-25] MEDS ORDERED: diphenhydrAMINE HCL 25 MG CAPSULE (FP) PO ONE (01:22)
--- NOTE | 2017-09-25 01:58 | HOSP ---
Subjective - Review of Symptoms Events since last encounter: called to see pt for rash, hives, itching. Subjective: pt reports he awoke with itching to his chest and arms and then hives and redness started after. Pt denies any new food or drink. The only new medication pt received prior to rash was oxycodone around 6pm. His antibiotic was changed from zosyn to cefazolin but his first dose was after the rash occurred. Pt also took ambien last night for the first time while in hospital but patient states he takes at home. A review of the [facility] registry reveals same. Physical Examination Vital Signs: Vital Signs Temperature 97.9 F 09/25/17 01:14 Pulse Rate 87 09/25/17 01:14 Respiratory Rate 18 09/25/17 01:14 Blood Pressure 134/99 09/25/17 01:14 O2 Sat by Pulse Oximetry (%) 100 09/24/17 21:00 Constitutional: Yes: Calm Cardiovascular: Yes: Regular Rate and Rhythm, S1, S2 Respiratory: Yes: CTA Bilaterally Gastrointestinal: Yes: Normal Bowel Sounds, Soft, Abdomen, Obese Integumentary: Yes: Other (erythema and hives noted across chest and below bilat breasts and on upper arms. No hives on back. abscess site R lateral chest with decreasing erythema and swelling when c/w admission on 09/22) Labs: CBC, BMP 09/23/17 06:15 09/23/17 06:15 Hospitalist Encounter Assessment: Hives, ? allergy to oxycodone - benadryl 25mg IV x 1 - would hold any further oxycodone doses - doubtful if zosyn allergy as pt has been on >2days but possible, monitor closely with next cefazolin dose.
[2017-09-25] MEDS: morphine SULFATE 4 MG/ML VIAL IVPUSH PRN ×4 (01:59→22:59)
[2017-09-25 07:42] LABS: BASO % 0.9 % (0-2.0); EOS % 2.1 % (0-4.5); HEMATOCRIT 37.1 % (35.4-49); HEMOGLOBIN 12.4 GM/dL (11.7-16.9); LYMPH % 10.5 % (8-40); MCH 29.7 pg (25.7-33.7); MCHC 33.5 g/dl (32.0-35.9); MEAN CELL VOLUME 88.7 fl (80-96); MEAN PLT VOLUME 7.3 fl (7.5-11.1); MONO % 12.1 % (3.8-10.2); NEUT % 74.4 % (42.8-82.8); PLATELET COUNT 231 K/MM3 (134-434); RBC 4.18 M/mm3 (4.00-5.60); RDW 13.6 % (11.9-15.9)
--- NOTE | 2017-09-25 08:22 | PN ---
Progress Note, Physician Chief Complaint: Right chest wall abscess History of Present Illness: 27 yo male with PMH Morbid obesity, MS who is s/p high dose steroid treatment 2 weeks ago who presented to the ED with a 5-6 day history of redness, pain and swelling to right right chest wall. Episode of pruritis last night, antibiotic changed, given benadryl. - Current Medication List Current Medications: Active Medications Enoxaparin Sodium (Lovenox -) 40 mg SQ DAILY NAVEEN Last Admin: 09/24/17 09:30 Dose: 40 mg Cefazolin Sodium/Dextrose (Ancef 2 Gm Premixed Ivpb -) 2 gm in 50 mls @ 100 mls /hr IVPB Q8H-IV NAVEEN Last Admin: 09/25/17 01:07 Dose: 100 mls/hr Morphine Sulfate (Morphine Sulfate) 4 mg IVPUSH Q4H PRN PRN Reason: PAIN LEVEL 7 - 10 Last Admin: 09/25/17 06:19 Dose: 4 mg Zolpidem Tartrate (Ambien -) 5 mg PO HS PRN PRN Reason: INSOMNIA Last Admin: 09/24/17 22:01 Dose: 5 mg - Objective Vital Signs: Vital Signs Temperature 98.2 F 09/25/17 06:00 Pulse Rate 92 H 09/25/17 06:00 Respiratory Rate 18 09/25/17 06:00 Blood Pressure 144/89 09/25/17 06:00 O2 Sat by Pulse Oximetry (%) 100 09/24/17 21:00 Vital Signs Period Temp Pulse Resp BP Sys/Leon Pulse Ox Last 24 Hr 97.9 F-98.6 F 82-92 -18 134-155/86-99 100 Constitutional: Yes: No Distress, Calm, Obese Eyes: Yes: Conjunctiva Clear, EOM Intact HENT: Yes: Atraumatic, Normocephalic Neck: Yes: Supple, Trachea Midline Cardiovascular: Yes: Regular Rate and Rhythm, S1, S2 Respiratory: Yes: Regular, CTA Bilaterally Gastrointestinal: Yes: Normal Bowel Sounds, Soft. No: Tenderness ...Rectal Exam: Yes: Deferred Genitourinary: No: CVA Tenderness - Left, CVA Tenderness - Right Musculoskeletal: No: Muscle Pain, Muscle Weakness Extremities: No: Cool, Cyanosis Wound/Incision: Yes: Clean/Dry, Well Approximated, Other (VAC in place 100ml or seropurulent material) Neurological: Yes: Alert, Oriented Psychiatric: Yes: Alert, Oriented Labs: CBC, BMP 09/25/17 07:30 Problem List - Problems (1) Cellulitis Assessment/Plan: 27 yo male MMP with agressive soft tissue infection right lateral chest wall POD #2 s/p Incision and Drainage of Right lateral chest well abscess. VAC dessing in place and draining ~50ml purulent, presumptive MSSA Management per primary team IV antibiotics per ID f/u cultures VAC Dressing application Right lateral chest wall Frequency: every 3-5days Measurement: [id number] oval seropurulent drainage, with 6cm of surrounding erythema Dressing: small granulofoam, with VAC freedom Forms completed on chart will follow Discharge planning Code(s): L03.90 - CELLULITIS, UNSPECIFIED Qualifiers: Site of cellulitis: trunk Site of cellulitis of trunk: chest wall Qualified Code(s): L03.313 - Cellulitis of chest wall (2) Fever Code(s): R50.9 - FEVER, UNSPECIFIED Qualifiers: Fever type: due to other condition Qualified Code(s): R50.81 - Fever presenting with conditions classified elsewhere (3) Obesity Code(s): E66.9 - OBESITY, UNSPECIFIED Qualifiers: Obesity type: due to excess calories Obesity classification: adult class 3 (BMI >= 40) Serious obesity comorbidity presence: with serious comorbidity Body mass index: BMI 50.0-59.9 Qualified Code(s): E66.01 - Morbid (severe) obesity due to excess calories; Z68.43 - Body mass index (BMI) 50-59.9 , adult (4) Abscess Code(s): L02.91 - CUTANEOUS ABSCESS, UNSPECIFIED (5) Immunocompromised Code(s): D84.9 - IMMUNODEFICIENCY, UNSPECIFIED (6) Multiple sclerosis Code(s): G35 - MULTIPLE SCLEROSIS
[2017-09-25 08:29] LABS: ALBUMIN 2.5 g/dl (3.4-5.0); ANION GAP 7 (8-16); BLOOD UREA NITROGEN 18 mg/dL (7-18); CALCIUM 7.1 mg/dL (8.5-10.1); CHLORIDE 103 mmol/L (98-107); CO2 29 mmol/L (21-32); GLUCOSE,RANDOM 79 mg/dL (74-106); POTASSIUM 4.1 mmol/L (3.5-5.1); SODIUM 139 mmol/L (136-145)
[2017-09-25 08:34] LABS: ALK PHOS 85 U/L (45-117); BILIRUBIN,TOTAL 0.4 mg/dL (0.2-1.0); CREATININE 1.6 mg/dL (0.7-1.3); SGOT/AST 37 U/L (15-37); SGPT/ALT 80 U/L (12-78); TOT PROT 6.1 g/dl (6.4-8.2)
[2017-09-25] MEDS ORDERED: PT OWN MED DRAWER 7, Y5N ONE (08:40)
[2017-09-25 09:06] LABS: ERYTHROCYTE SEDIMENTATION RATE 58 mm/hr (0-10)
--- NOTE | 2017-09-25 09:07 | OP ---
DATE OF OPERATION: 09/22/2017 PREOPERATIVE DIAGNOSIS: Right lateral chest wall abscess. POSTOPERATIVE DIAGNOSIS: Right lateral chest wall abscess. PROCEDURE: Incision and drainage of right lateral chest wall abscess. ATTENDING SURGEON: Arnold Arreguin MD ANESTHESIOLOGIST: Sin Vásquez MD ANESTHESIA: General with local. Local consisted of 0.5% Marcaine, a total of 20 mL given in an area block fashion. ESTIMATED BLOOD LOSS: 20 mL. IV FLUID REPLACED: 400 mL. SPECIMEN SENT: Wound culture, right lateral chest wall. BRIEF FINDINGS: The patient had a large abscess; 60 mL of particulate purulent material drained from the right lateral chest wall approximately in the anterior axillary line. PROCEDURE: Patient was brought to the operating room, placed in the supine position on the operating table with the right arm extended at 100 degrees perpendicular to the body's axis. The area of the lower extremities had SCDs placed for compression. Patient was induced with general anesthesia and endotracheally intubated. Patient then had the erythema on the right lateral chest wall . Formal timeout identifying the operative site and procedure. We then proceeded with sterile prep and drape of the site at which point we began to then use a Bovie cautery to core out what appeared to be the central punctum of the point of maximum fluctuance from the skin deep into the abscess cavity at which point we began to experience a gush of pus. The wound culture was immediately sent for sensitivity and speciation. We then proceeded with removing the plug of tissue and irrigating the wound with approximately 3 L of sterile irrigation fluid. There appeared to be some tracking and undermining anteriorly towards the breast as well as superiorly between the 9 and 11 o'clock positions, some undermining towards the back. These were explored with a digit, appeared to contain additional areas of tracking. These areas were copiously irrigated as well with an additional liter and a half of sterile irrigation fluid. Once clear the wound cavity was then packed with 2-inch Iodoform packing in the areas of undermining. The wound was then dressed. A 2-cm circular plug defect was remaining. It was packed and then covered with 4 x 4 gauze and an absorbant ABD pad and tape. The patient was stable throughout the procedure. Counts were correct. Patient returned to recovery in stable condition. MD LUIS ENRIQUE Miller/[id number]
[2017-09-25 09:25] LABS: ACANTHOCYTES 0; ANISOCYTOSIS 0; HELMET CELLS 0; HOWELL-JOLLY BODIES 0; MACROCYTOSIS 0; OVALOCYTE 0; PLATELET ESTIMATE NORMAL; ROULEAU 0; SICKELED CELLS 0; TARGET CELLS 0; TEAR DROP CELLS 0; TOXIC GRANULATION 0
[2017-09-25] MEDS: ENOXAPARIN NA (PORCINE) 40 MG/0.4 ML DISP.SYRIN SQ SCH (10:32)
--- NOTE | 2017-09-25 10:42 | PN ---
Progress Note, Physician Chief Complaint: ID Patient developed severe uritcaria after getting dose of Roxicodone. In addition he is experiencing chest tightness and SOB since this morning which is new. He has no history of Asthma - Current Medication List Current Medications: Active Medications Enoxaparin Sodium (Lovenox -) 40 mg SQ DAILY NAVEEN Last Admin: 09/24/17 09:30 Dose: 40 mg Cefazolin Sodium/Dextrose (Ancef 2 Gm Premixed Ivpb -) 2 gm in 50 mls @ 100 mls /hr IVPB Q8H-IV NAVEEN Last Admin: 09/25/17 01:07 Dose: 100 mls/hr Morphine Sulfate (Morphine Sulfate) 4 mg IVPUSH Q4H PRN PRN Reason: PAIN LEVEL 7 - 10 Last Admin: 09/25/17 06:19 Dose: 4 mg Zolpidem Tartrate (Ambien -) 5 mg PO HS PRN PRN Reason: INSOMNIA Last Admin: 09/24/17 22:01 Dose: 5 mg - Objective Vital Signs: Vital Signs Temperature 98.2 F 09/25/17 06:00 Pulse Rate 92 H 09/25/17 06:00 Respiratory Rate 18 09/25/17 06:00 Blood Pressure 144/89 09/25/17 06:00 O2 Sat by Pulse Oximetry (%) 100 09/24/17 21:00 Constitutional: Yes: Mild Distress, Obese Neck: Yes: WNL, Supple, Other (no st ridor) Cardiovascular: Yes: S1, S2 Respiratory: No: Rales, Rhonchi, Wheezes Gastrointestinal: Yes: WNL, Normal Bowel Sounds, Soft. No: Tenderness, Tenderness, Epigastrium Integumentary: Yes: Other (uriticaria rash trucnk back) Labs: CBC, BMP 09/25/17 07:30 09/25/17 07:30 Problem List - Problems (1) Cellulitis Code(s): L03.90 - CELLULITIS, UNSPECIFIED Qualifiers: Site of cellulitis: trunk Site of cellulitis of trunk: chest wall Qualified Code(s): L03.313 - Cellulitis of chest wall (2) Abscess Code(s): L02.91 - CUTANEOUS ABSCESS, UNSPECIFIED (3) Obesity Code(s): E66.9 - OBESITY, UNSPECIFIED Qualifiers: Obesity type: due to excess calories Obesity classification: adult class 3 (BMI >= 40) Serious obesity comorbidity presence: with serious comorbidity Body mass index: BMI 50.0-59.9 Qualified Code(s): E66.01 - Morbid (severe) obesity due to excess calories; Z68.43 - Body mass index (BMI) 50-59.9 , adult (4) Multiple sclerosis Code(s): G35 - MULTIPLE SCLEROSIS (5) Allergic reaction Code(s): T78.40XA - ALLERGY, UNSPECIFIED, INITIAL ENCOUNTER Assessment/Plan Microbiology 09/22/17 18:30 Abscess Gram Stain - Final 09/21/17 00:20 Urine - Urine Clean Catch Urine Culture - Final NO GROWTH OBTAINED 09/22/17 18:30 Abscess Wound Culture - Preliminary Presumptive Mssa (Pbp2a Neg) 09/21/17 22:57 Blood - Peripheral Venous Blood Culture - Preliminary NO GROWTH OBTAINED AFTER 72 HOURS, INCUBATION TO CONTINUE FOR 2 DAYS. 09/21/17 22:57 Blood - Peripheral Venous Blood Culture - Preliminary NO GROWTH OBTAINED AFTER 72 HOURS, INCUBATION TO CONTINUE FOR 2 DAYS. Laboratory Tests 09/22/17 09/25/17 09/25/17 10:55 07:30 07:30 WBC 13.0 H Hgb 12.4 Plt Count 231 BUN 18 Creatinine 1.6 H Creat Clearance w eGFR 51.36 AST 37 ALT 80 H Alkaline Phosphatase 85 D HIV 1&2 Antibody Screen Negative HIV P24 Antigen Negative Assessment S.P drainage of large abscess with cellulitis MSSA on culture. Now with SOB and severe urticaria allergic reaction to ? Roxicodone. Complicating urticarial reaction ? opiate related though cannot be sure antibiotic related. Also note bump in Cr up O2 sat 96% 2 liters Elevated Cr secondary to Vancomycin ?? Advise Pulmonary consultation for SOB ? anaphylaxis high risk DVT PE He is on Lovenox Stop Cefazolin Clindamycin 990mg IVPB q 8 H Moniter kidney function Urine eosinophils IV solumedrol Selvin JASMINE
[2017-09-25] MEDS ORDERED: ALBUTEROL SO4 0.083% IH SOL 2.5 MG/3 ML VIAL.NEB. NEB PRN (11:04)
[2017-09-25] MEDS ORDERED: ALBUTEROL SO4 2.5/IPRATROPIUM 0.5 INH SOL 3 ML VIAL.NEB. NEB ONE (11:06)
--- NOTE | 2017-09-25 11:06 | CON.PULM ---
Consult Consult Specialty:: PULMONARY Referred by:: Dr. Montalvo Reason for Consultation:: shortness of breath - History of Present Illness Chief Complaint: axillary abscess History of Present Illness: 27yo male with h/o multiple sclerosis who was admitted with right axillary pain and swelling. Found to have a abscess now s/p I&D growing MSSA. Was given an oxycodone last night and developed a diffuse rash. This AM started feeling short of breath with chest tightness. +nonproductive cough. He does report having asthma as a child. He is not a tobacco smoker but does use marijuana cigarettes. He does wheeze when he gets upper respiratory tract infections. 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 Additional Medical History: Multiple sclerosis, Morbid obesity - Alcohol/Substance Use Hx Alcohol Use: No - Smoking History Smoking history: Never smoked Have you smoked in the past 12 months: No Aproximately how many cigarettes per day: 1 - Social History History of Recent Travel: No Home Medications - Allergies Allergies/Adverse Reactions: Allergies Allergy/AdvReac Type Severity Reaction Status Date / Time interferon beta-1b Allergy Verified 09/21/17 20:23 [From Betaseron] glatiramer acetate AdvReac Verified 04/04/16 03:17 [From Copaxone] - Home Medications Home Medications: Ambulatory Orders Interferon Beta-1B [Betaseron] 0.3 mg SQ Q48H 10/26/13 Acetaminophen [Tylenol .Regular Strength -] 325 mg PO Q4H PRN #0 tablet Ibuprofen [Motrin -] 400 mg PO Q8H PRN #0 tablet 10/28/13 Diazepam [Valium] 5 mg PO Q8H PRN #21 tablet MDD 3 04/04/16 Review of Systems - Review of Systems Constitutional: reports: Fever, Weakness Eyes: denies: Recent Change in Vision HENT: denies: Nasal Congestion, Throat Pain Neck: denies: Stiffness, Tenderness Cardiovascular: reports: Shortness of Breath. denies: Chest Pain, Edema, Palpitations Respiratory: reports: Cough, SOB. denies: Hemoptysis Gastrointestinal: denies: Abdominal Pain, Nausea, Vomiting Genitourinary: denies: Dysuria, Hematuria Neurological: denies: Dizziness, Headache Physical Exam Vital Sings: Vital Signs Temperature 98.2 F 09/25/17 06:00 Pulse Rate 92 H 09/25/17 06:00 Respiratory Rate 18 09/25/17 06:00 Blood Pressure 144/89 09/25/17 06:00 O2 Sat by Pulse Oximetry (%) 100 09/24/17 21:00 Constitutional: Yes: Anxious Eyes: Yes: Conjunctiva Clear, EOM Intact HENT: Yes: Atraumatic, Normocephalic Neck: Yes: Supple, Trachea Midline Cardiovascular: Yes: Regular Rate and Rhythm Respiratory: Yes: Poor Air Entry, Wheezes (scattered) ...Clubbing: No Gastrointestinal: Yes: Normal Bowel Sounds, Soft, Abdomen, Obese. No: Tenderness Edema: No Integumentary: Yes: Rash Neurological: Yes: Alert, Oriented Labs: CBC, BMP 09/25/17 07:30 09/25/17 07:30 Imaging - Results Chest X-ray: Report Reviewed, Image Reviewed (no infiltrates) Problem List - Problems (1) Allergic reaction Code(s): T78.40XA - ALLERGY, UNSPECIFIED, INITIAL ENCOUNTER (2) Acute bronchospasm Code(s): J98.01 - ACUTE BRONCHOSPASM (3) Abscess Code(s): L02.91 - CUTANEOUS ABSCESS, UNSPECIFIED (4) Multiple sclerosis Code(s): G35 - MULTIPLE SCLEROSIS Assessment/Plan Acute Bronchospasm Allergic Reaction Axillary Abscess s/p I&D Multiple Sclerosis Morbid Obesity - agree with IV medrol - inhaled bronchodilators standing and PRN - O2 as needed - will order CXR - continue antibiotics - outpt PFTs - DVT prophylaxis Thank you for this consult Raphael Castro MD
[2017-09-25] MEDS: ALBUTEROL SO4 2.5/IPRATROPIUM 0.5 INH SOL 3 ML VIAL.NEB. NEB SCH ×3 (11:23→20:40)
--- NOTE | 2017-09-25 12:01 | PN ---
Progress Note, Physician Chief Complaint: Developed allergic reaction last night after taking Oxycodone for pain. he did not have any problems with Morphine or antibiotics [place] throat tighten around midnight and SOB this morning received Benadryl iv Itching all over his body No pain at cellulitis sight - Current Medication List Current Medications: Active Medications Albuterol Sulfate (Ventolin 0.083% Nebulizer Soln -) 1 amp NEB Q4H PRN PRN Reason: SHORT OF BREATH/WHEEZING Albuterol/Ipratropium (Duoneb -) 1 amp NEB RQID NAVEEN Last Admin: 09/25/17 11:23 Dose: 1 amp Enoxaparin Sodium (Lovenox -) 40 mg SQ DAILY NAVEEN Last Admin: 09/25/17 10:32 Dose: 40 mg Clindamycin Phosphate (Cleocin 900 Mg Premix Ivpb -) 900 mg in 50 mls @ 100 mls /hr IVPB Q8H-IV NAVEEN; Protocol Methylprednisolone Sodium Succinate (Solu-Medrol -) 60 mg IVPUSH Q8H-IV NAVEEN Morphine Sulfate (Morphine Sulfate) 4 mg IVPUSH Q4H PRN PRN Reason: PAIN LEVEL 7 - 10 Last Admin: 09/25/17 06:19 Dose: 4 mg Zolpidem Tartrate (Ambien -) 5 mg PO HS PRN PRN Reason: INSOMNIA Last Admin: 09/24/17 22:01 Dose: 5 mg - Objective Vital Signs: Vital Signs Temperature 98.2 F 09/25/17 06:00 Pulse Rate 92 H 09/25/17 06:00 Respiratory Rate 18 09/25/17 06:00 Blood Pressure 144/89 09/25/17 06:00 O2 Sat by Pulse Oximetry (%) 100 09/24/17 21:00 Constitutional: Yes: No Distress, Calm Cardiovascular: Yes: Regular Rate and Rhythm Respiratory: Yes: CTA Bilaterally Gastrointestinal: Yes: Normal Bowel Sounds, Soft, Abdomen, Obese. No: Tenderness Edema: No Integumentary: Yes: Rash (generalized raised lesions), Other (erythema at right axilla and back has decreased, no tenderness, wound vac+) Labs: CBC, BMP 09/25/17 07:30 09/25/17 07:30 Problem List - Problems (1) Acute bronchospasm Code(s): J98.01 - ACUTE BRONCHOSPASM (2) Allergic reaction Code(s): T78.40XA - ALLERGY, UNSPECIFIED, INITIAL ENCOUNTER (3) Axillary hidradenitis suppurativa Code(s): L73.2 - HIDRADENITIS SUPPURATIVA (4) Cellulitis Code(s): L03.90 - CELLULITIS, UNSPECIFIED Qualifiers: Site of cellulitis: trunk Site of cellulitis of trunk: chest wall Qualified Code(s): L03.313 - Cellulitis of chest wall (5) Obesity Code(s): E66.9 - OBESITY, UNSPECIFIED Qualifiers: Obesity type: due to excess calories Obesity classification: adult class 3 (BMI >= 40) Serious obesity comorbidity presence: with serious comorbidity Body mass index: BMI 50.0-59.9 Qualified Code(s): E66.01 - Morbid (severe) obesity due to excess calories; Z68.43 - Body mass index (BMI) 50-59.9 , adult Assessment/Plan PLAN IV Solumedrol and Nebs benadryl as needed Pulmonary eval noted IV antibiotics- changed to Clindamycin add Bacid calamine lotion prn lips are swollen but no tongue or uvula swelling continue wound vac
[2017-09-25 12:08] VITALS: BMI 55.1
[2017-09-25] MEDS ORDERED: CALAMINE 8% TOPICAL LOTION 177 ML BOTTLE TP PRN (12:13)
[2017-09-25] MEDS ORDERED: methylPREDNISolone NA SUCC 125 MG/2 ML VIAL IVPUSH ONE (12:25)
[2017-09-25] MEDS: CLINDAMYCIN 900 MG PREMIX IVPB 900 MG/50 ML BAG IVPB SCH ×3 (12:58→17:03)
[2017-09-25] MEDS: diphenhydrAMINE HCL 25 MG CAPSULE (FP) PO PRN ×2 (12:58→19:57)
[2017-09-25] MEDS: methylPREDNISolone NA SUCC 125 MG/2 ML VIAL IVPUSH SCH (18:25)
[2017-09-26] MEDS: methylPREDNISolone NA SUCC 125 MG/2 ML VIAL IVPUSH SCH ×3 (01:04→18:11)
[2017-09-26] MEDS: ZOLPIDEM TARTRATE 5 MG TABLET PO PRN (01:18)
[2017-09-26] MEDS: CLINDAMYCIN 900 MG PREMIX IVPB 900 MG/50 ML BAG IVPB SCH ×3 (01:18→18:12)
[2017-09-26 07:04] LABS: BASO % 0.2 % (0-2.0); HEMATOCRIT 38.1 % (35.4-49); HEMOGLOBIN 12.8 GM/dL (11.7-16.9); LYMPH % 6.2 % (8-40); MCH 29.9 pg (25.7-33.7); MCHC 33.6 g/dl (32.0-35.9); MEAN CELL VOLUME 89.1 fl (80-96); MEAN PLT VOLUME 7.4 fl (7.5-11.1); MONO % 1.4 % (3.8-10.2); NEUT % 92.2 % (42.8-82.8); PLATELET COUNT 281 K/MM3 (134-434); RBC 4.28 M/mm3 (4.00-5.60); RDW 13.6 % (11.9-15.9); WHITE BLOOD COUNT 18.6 K/mm3 (4.0-10.0)
[2017-09-26] MEDS: diphenhydrAMINE HCL 25 MG CAPSULE (FP) PO PRN (07:08)
[2017-09-26] MEDS: ALBUTEROL SO4 2.5/IPRATROPIUM 0.5 INH SOL 3 ML VIAL.NEB. NEB SCH ×4 (07:35→20:06)
[2017-09-26 08:31] LABS: CHLORIDE 103 mmol/L (98-107); POTASSIUM 4.2 mmol/L (3.5-5.1); SODIUM 140 mmol/L (136-145)
[2017-09-26 08:50] LABS: ALBUMIN 2.7 g/dl (3.4-5.0); ALK PHOS 87 U/L (45-117); ANION GAP 13 (8-16); BILIRUBIN,TOTAL 0.3 mg/dL (0.2-1.0); BLOOD UREA NITROGEN 16 mg/dL (7-18); CALCIUM 8.6 mg/dL (8.5-10.1); CO2 24 mmol/L (21-32); CREATININE 1.4 mg/dL (0.7-1.3); SGOT/AST 32 U/L (15-37); SGPT/ALT 64 U/L (12-78); TOT PROT 6.8 g/dl (6.4-8.2)
[2017-09-26 09:16] LABS: GLUCOSE,RANDOM 100 mg/dL (74-106)
[2017-09-26] MEDS ORDERED: LACTOBACILLUS ACIDOPHILUS 1 TABLET PO SCH (10:00)
[2017-09-26] MEDS: morphine SULFATE 4 MG/ML VIAL IVPUSH PRN ×2 (10:27→20:37)
[2017-09-26] MEDS: ENOXAPARIN NA (PORCINE) 40 MG/0.4 ML DISP.SYRIN SQ SCH (10:28)
[2017-09-26 11:02] LABS: ANISOCYTOSIS 3+; MACROCYTOSIS 0; PLATELET ESTIMATE NORMAL
--- NOTE | 2017-09-26 11:30 | PN ---
Progress Note (short form) - Note Progress Note: pt seen/ examined chart reviewed events noted feels well today . no complains pain under control Vital Signs Temp 98.3 F 09/26/17 10:26 Pulse 100 H 09/26/17 10:26 Resp 18 09/26/17 10:26 BP 145/71 09/26/17 10:26 Pulse Ox 99 09/26/17 10:27 Intake & Output 09/25/17 09/25/17 09/26/17 11:59 23:59 11:59 Intake Total 290 200 100 Output Total 2500 800 Balance -2210 -600 100 Weight 352 lb Intake: IVPB 50 100 Oral 240 200 Output: Urine 2500 800 Void 2500 800 Other: Voiding Method Urinal Urinal Urinal # Unmeasured Voids Void 1 Bowel Movement No Yes No Height 5 ft 7 in Body Mass Index (BMI) 55.1 Active Medications Albuterol Sulfate (Ventolin 0.083% Nebulizer Soln -) 1 amp NEB Q4H PRN PRN Reason: SHORT OF BREATH/WHEEZING Last Admin: 09/26/17 02:14 Dose: 1 amp Albuterol/Ipratropium (Duoneb -) 1 amp NEB RQID NAVEEN Last Admin: 09/26/17 07:35 Dose: 1 amp Calamine (Calamine 8% Topical Lotion -) 1 applic TP QID PRN PRN Reason: FOR ITCHING Last Admin: 09/25/17 16:59 Dose: 1 applic Diphenhydramine HCl (Benadryl -) 25 mg PO Q6H PRN PRN Reason: FOR ITCHING Last Admin: 09/26/17 07:08 Dose: 25 mg Enoxaparin Sodium (Lovenox -) 40 mg SQ DAILY NAVEEN Last Admin: 09/26/17 10:28 Dose: Not Given Clindamycin Phosphate (Cleocin 900 Mg Premix Ivpb -) 900 mg in 50 mls @ 100 mls /hr IVPB Q8H-IV NAVEEN; Protocol Last Admin: 09/26/17 10:28 Dose: 100 mls/hr Lactobacillus Acidophilus (Bacid -) 1 tab PO DAILY NAVEEN Last Admin: 09/26/17 10:28 Dose: Not Given Methylprednisolone Sodium Succinate (Solu-Medrol -) 60 mg IVPUSH Q8H-IV NAVEEN Last Admin: 09/26/17 10:28 Dose: 60 mg Morphine Sulfate (Morphine Sulfate) 4 mg IVPUSH Q4H PRN PRN Reason: PAIN LEVEL 7 - 10 Last Admin: 09/26/17 10:27 Dose: 4 mg Zolpidem Tartrate (Ambien -) 5 mg PO HS PRN PRN Reason: INSOMNIA Last Admin: 09/26/17 01:18 Dose: 5 mg CBC, BMP 09/26/17 06:20 09/26/17 06:20 Microbiology 09/21/17 22:57 Blood Culture - Preliminary Blood - Peripheral Venous NO GROWTH OBTAINED AFTER 96 HOURS, INCUBATION TO CONTINUE FOR 1 DAYS. 09/21/17 22:57 Blood Culture - Preliminary Blood - Peripheral Venous NO GROWTH OBTAINED AFTER 96 HOURS, INCUBATION TO CONTINUE FOR 1 DAYS. 09/22/17 18:30 Gram Stain - Final Abscess Wound Culture - Final Staphylococcus Aureus Physical Constitutional: Yes: No Distress, Calm/ comfortable Cardiovascular: Yes: Regular Rate and Rhythm Respiratory: Yes: CTA Bilaterally Gastrointestinal: Yes: Normal Bowel Sounds, Soft, Abdomen, Obese. No: Tenderness Edema: No Integumentary: Yes: Rash (generalized raised lesions), Other (erythema at right axilla and back has decreased, no tenderness, wound vac+) Assessment/Plan better IV Solumedrol and Nebs benadryl as needed Pulmonary eval noted IV antibiotics- Clindamycin continue wound vac f/u labs. dvt prophylaxis will follow Problem List - Problems (1) Axillary hidradenitis suppurativa Code(s): L73.2 - HIDRADENITIS SUPPURATIVA (2) Cellulitis Code(s): L03.90 - CELLULITIS, UNSPECIFIED Qualifiers: Site of cellulitis: trunk Site of cellulitis of trunk: chest wall Qualified Code(s): L03.313 - Cellulitis of chest wall (3) Obesity Code(s): E66.9 - OBESITY, UNSPECIFIED Qualifiers: Obesity type: due to excess calories Obesity classification: adult class 3 (BMI >= 40) Serious obesity comorbidity presence: with serious comorbidity Body mass index: BMI 50.0-59.9 Qualified Code(s): E66.01 - Morbid (severe) obesity due to excess calories; Z68.43 - Body mass index (BMI) 50-59.9 , adult (4) Abscess Code(s): L02.91 - CUTANEOUS ABSCESS, UNSPECIFIED (5) Immunocompromised Code(s): D84.9 - IMMUNODEFICIENCY, UNSPECIFIED (6) Multiple sclerosis Code(s): G35 - MULTIPLE SCLEROSIS (7) Insomnia Code(s): G47.00 - INSOMNIA, UNSPECIFIED
--- NOTE | 2017-09-26 12:53 | PN ---
Progress Note (short form) - Note Progress Note: no wheezing rash resolving able to raise his arm Vital Signs Period Temp Pulse Resp BP Sys/Leon Pulse Ox Last 24 Hr 97.6 F-98.4 F 84-106 18-20 130-160/71-92 96-99 cor-rrr lungs clear abd soft,nt, +induration surrounding the vac site ext no edema CBC, BMP 09/26/17 06:20 09/26/17 06:20 Microbiology 09/21/17 22:57 Blood - Peripheral Venous Blood Culture - Preliminary NO GROWTH OBTAINED AFTER 96 HOURS, INCUBATION TO CONTINUE FOR 1 DAYS. 09/21/17 22:57 Blood - Peripheral Venous Blood Culture - Preliminary NO GROWTH OBTAINED AFTER 96 HOURS, INCUBATION TO CONTINUE FOR 1 DAYS. 09/22/17 18:30 Abscess Gram Stain - Final 09/22/17 18:30 Abscess Wound Culture - Final Staphylococcus Aureus 09/21/17 00:20 Urine - Urine Clean Catch Urine Culture - Final NO GROWTH OBTAINED a/p MSSA abscess- s/p incision and drainage now on clindamycin leukocytosis- suspect multifactorial- started on steroids for wheezing and rash yesterday allergic reaction to oxycodone- elevated creatinine improving
[2017-09-26] MEDS ORDERED: BUPIVACAINE HCL/PF 0.5% (5MG/ML) 10 ML VIAL ONE ×2 (15:25→15:53)
[2017-09-26] MEDS ORDERED: MIDAZOLAM HCL 2 MG/2 ML SINGLE DOSE VIAL ONE (15:34)
[2017-09-26] MEDS ORDERED: PROPOFOL 20 ML ONE (16:26)
[2017-09-26] MEDS ORDERED: BUPIVACAINE HCL/PF 0.5% (5MG/ML) 10 ML VIAL IJ ONE (16:31)
[2017-09-26] MEDS ORDERED: ONDANSETRON 4 MG/2 ML VIAL IVPUSH PRN (16:34)
--- NOTE | 2017-09-26 16:49 | OP ---
Operative Note - Note: Operative Date: 09/26/17 Pre-Operative Diagnosis: right flank soft tissue infection Operation: irrrigation and debridement of right flank infection and placement of vacuum assited closure Findings: seropurulent drainge and an area of gangrene adjacent to undermining Post-Operative Diagnosis: Same as Pre-op Surgeon: Arnold Arreguin Anesthesiologist/STEEL WORKER: Freedom Henry Anesthesia: General, Local (Marcaine 0.5) Estimated Blood Loss (mls): 2 Fluid Volume Replaced (mls): 400 (LR) Operative Report Dictated: Yes
[2017-09-26] MEDS ORDERED: ZOLPIDEM TARTRATE 5 MG TABLET PO PRN (17:17)
[2017-09-26] MEDS ORDERED: diphenhydrAMINE HCL 25 MG CAPSULE (FP) PO PRN (17:17)
[2017-09-26] MEDS ORDERED: CALAMINE 8% TOPICAL LOTION 177 ML BOTTLE TP PRN (17:17)
[2017-09-26] MEDS ORDERED: ALBUTEROL SO4 0.083% IH SOL 2.5 MG/3 ML VIAL.NEB. NEB PRN (17:17)
[2017-09-27] MEDS: morphine SULFATE 4 MG/ML VIAL IVPUSH PRN ×3 (01:09→13:14)
[2017-09-27] MEDS: CLINDAMYCIN 900 MG PREMIX IVPB 900 MG/50 ML BAG IVPB SCH ×3 (01:11→18:28)
[2017-09-27] MEDS: methylPREDNISolone NA SUCC 125 MG/2 ML VIAL IVPUSH SCH (01:54)
[2017-09-27] MEDS: ALBUTEROL SO4 2.5/IPRATROPIUM 0.5 INH SOL 3 ML VIAL.NEB. NEB SCH ×4 (07:44→20:45)
[2017-09-27 08:29] LABS: BASO % 0.1 % (0-2.0); HEMATOCRIT 36.4 % (35.4-49); HEMOGLOBIN 12.3 GM/dL (11.7-16.9); LYMPH % 5.2 % (8-40); MCH 30.4 pg (25.7-33.7); MCHC 33.7 g/dl (32.0-35.9); MEAN CELL VOLUME 90.3 fl (80-96); MEAN PLT VOLUME 7.7 fl (7.5-11.1); MONO % 3.4 % (3.8-10.2); NEUT % 91.3 % (42.8-82.8); PLATELET COUNT 274 K/MM3 (134-434); RBC 4.04 M/mm3 (4.00-5.60); WHITE BLOOD COUNT 26.6 K/mm3 (4.0-10.0)
--- NOTE | 2017-09-27 08:51 | PN ---
Progress Note, Physician Chief Complaint: ID Clindamycin IV steroids Feels well Taken to OR for additional debridement - Current Medication List Current Medications: Active Medications Albuterol Sulfate (Ventolin 0.083% Nebulizer Soln -) 1 amp NEB Q4H PRN PRN Reason: SHORT OF BREATH/WHEEZING Albuterol/Ipratropium (Duoneb -) 1 amp NEB RQID NAVEEN Last Admin: 09/27/17 07:44 Dose: 1 amp Calamine (Calamine 8% Topical Lotion -) 1 applic TP QID PRN PRN Reason: FOR ITCHING Diphenhydramine HCl (Benadryl Injection -) 25 mg IVPB Q12H PRN PRN Reason: FOR ITCHING Diphenhydramine HCl (Benadryl -) 25 mg PO Q6H PRN PRN Reason: FOR ITCHING Last Admin: 09/27/17 05:49 Dose: 25 mg Enoxaparin Sodium (Lovenox -) 40 mg SQ DAILY [facility] Clindamycin Phosphate (Cleocin 900 Mg Premix Ivpb -) 900 mg in 50 mls @ 100 mls /hr IVPB Q8H-IV NAVEEN; Protocol Last Admin: 09/27/17 01:11 Dose: 100 mls/hr Lactobacillus Acidophilus (Bacid -) 1 tab PO DAILY NAVEEN Methylprednisolone Sodium Succinate (Solu-Medrol -) 60 mg IVPUSH Q8H-IV NAVEEN Last Admin: 09/27/17 01:54 Dose: 60 mg Morphine Sulfate (Morphine Sulfate) 4 mg IVPUSH Q4H PRN PRN Reason: PAIN LEVEL 7 - 10 Last Admin: 09/27/17 05:22 Dose: 4 mg Zolpidem Tartrate (Ambien -) 5 mg PO HS PRN PRN Reason: INSOMNIA - Objective Vital Signs: Vital Signs Temperature 97.9 F 09/27/17 06:00 Pulse Rate 75 09/27/17 06:00 Respiratory Rate 20 09/27/17 06:00 Blood Pressure 141/83 09/27/17 06:00 O2 Sat by Pulse Oximetry (%) 98 09/26/17 21:00 Extremities: Yes: Other (VAC dressing) Integumentary: Yes: Other (Hives resolved) Labs: CBC, BMP 09/27/17 06:20 Problem List - Problems (1) Cellulitis Code(s): L03.90 - CELLULITIS, UNSPECIFIED Qualifiers: Site of cellulitis: trunk Site of cellulitis of trunk: chest wall Qualified Code(s): L03.313 - Cellulitis of chest wall (2) Abscess Code(s): L02.91 - CUTANEOUS ABSCESS, UNSPECIFIED (3) Obesity Code(s): E66.9 - OBESITY, UNSPECIFIED Qualifiers: Obesity type: due to excess calories Obesity classification: adult class 3 (BMI >= 40) Serious obesity comorbidity presence: with serious comorbidity Body mass index: BMI 50.0-59.9 Qualified Code(s): E66.01 - Morbid (severe) obesity due to excess calories; Z68.43 - Body mass index (BMI) 50-59.9 , adult (4) Multiple sclerosis Code(s): G35 - MULTIPLE SCLEROSIS (5) Allergic reaction Code(s): T78.40XA - ALLERGY, UNSPECIFIED, INITIAL ENCOUNTER Assessment/Plan Microbiology 09/22/17 18:30 Abscess Gram Stain - Final 09/22/17 18:30 Abscess Wound Culture - Final Staphylococcus Aureus 09/21/17 22:57 Blood - Peripheral Venous Blood Culture - Final NO GROWTH AFTER 5 DAYS INCUBATION 09/21/17 00:20 Urine - Urine Clean Catch Urine Culture - Final NO GROWTH OBTAINED Laboratory Tests 09/26/17 09/27/17 06:20 06:20 WBC 26.6 H Hgb 12.3 Hct 36.4 Plt Count 274 BUN 16 Creatinine 1.4 H Creat Clearance w eGFR 59.92 Assessment Severe SSTI with gangrene noted on debridement MSSA DRUG reaction ? narcotic HIVES better Leukomoid response from steroids Plan Continue IV Clinda though could be switched to oral STOP Solumedrol Prednisone 40mg today last day Selvin JASMINE
[2017-09-27] MEDS ORDERED: predniSONE 20 MG TABLET (UD) PO ONE (09:00)
[2017-09-27 09:03] LABS: ALBUMIN 2.9 g/dl (3.4-5.0); ALK PHOS 78 U/L (45-117); ANION GAP 8 (8-16); BILIRUBIN,TOTAL 0.5 mg/dL (0.2-1.0); BLOOD UREA NITROGEN 21 mg/dL (7-18); CHLORIDE 103 mmol/L (98-107); CO2 26 mmol/L (21-32); CREATININE 1.2 mg/dL (0.7-1.3); GLUCOSE,RANDOM 107 mg/dL (74-106); POTASSIUM 4.5 mmol/L (3.5-5.1); SGOT/AST 31 U/L (15-37); SGPT/ALT 64 U/L (12-78); SODIUM 137 mmol/L (136-145); TOT PROT 6.8 g/dl (6.4-8.2)
[2017-09-27 09:38] LABS: ANISOCYTOSIS 1+; MACROCYTOSIS 0; PLATELET ESTIMATE NORMAL
[2017-09-27] MEDS: LACTOBACILLUS ACIDOPHILUS 1 TABLET PO SCH (09:50)
[2017-09-27] MEDS: ENOXAPARIN NA (PORCINE) 40 MG/0.4 ML DISP.SYRIN SQ SCH (09:50)
--- NOTE | 2017-09-27 11:19 | PN ---
Progress Note (short form) - Note Progress Note: Comfortable sitting in bed on RA. Breathing feels better. Intake & Output 09/24/17 09/25/17 09/26/17 09/27/17 23:59 23:59 23:59 23:59 Intake Total 1500 490 900 240 Output Total 1300 3300 Balance 200 -2810 900 240 Weight 352 lb Last Vital Signs Temp Pulse Resp BP Pulse Ox 98 F 83 18 156/77 98 09/27/17 09:46 09/27/17 09:46 09/27/17 09:46 09/27/17 09:46 09/26/17 21:00 Active Medications Albuterol Sulfate (Ventolin 0.083% Nebulizer Soln -) 1 amp NEB Q4H PRN PRN Reason: SHORT OF BREATH/WHEEZING Albuterol/Ipratropium (Duoneb -) 1 amp NEB RQID NAVEEN Last Admin: 09/27/17 07:44 Dose: 1 amp Calamine (Calamine 8% Topical Lotion -) 1 applic TP QID PRN PRN Reason: FOR ITCHING Diphenhydramine HCl (Benadryl Injection -) 25 mg IVPB Q12H PRN PRN Reason: FOR ITCHING Diphenhydramine HCl (Benadryl -) 25 mg PO Q6H PRN PRN Reason: FOR ITCHING Last Admin: 09/27/17 05:49 Dose: 25 mg Enoxaparin Sodium (Lovenox -) 40 mg SQ DAILY NAVEEN Last Admin: 09/27/17 09:50 Dose: 40 mg Clindamycin Phosphate (Cleocin 900 Mg Premix Ivpb -) 900 mg in 50 mls @ 100 mls /hr IVPB Q8H-IV NAVEEN; Protocol Last Admin: 09/27/17 09:50 Dose: 100 mls/hr Lactobacillus Acidophilus (Bacid -) 1 tab PO DAILY NAVEEN Last Admin: 09/27/17 09:50 Dose: 1 tab Morphine Sulfate (Morphine Sulfate) 4 mg IVPUSH Q4H PRN PRN Reason: PAIN LEVEL 7 - 10 Last Admin: 09/27/17 05:22 Dose: 4 mg Zolpidem Tartrate (Ambien -) 5 mg PO HS PRN PRN Reason: INSOMNIA Constitutional: Yes: NAD Eyes: Yes: Conjunctiva Clear, EOM Intact HENT: Yes: Atraumatic, Normocephalic Neck: Yes: Supple, Trachea Midline Cardiovascular: Yes: Regular Rate and Rhythm Respiratory: Yes: Poor Air Entry, No Wheezes appreciated ...Clubbing: No Gastrointestinal: Yes: Normal Bowel Sounds, Soft, Abdomen, Obese. No: Tenderness Edema: No Integumentary: Yes: Rash Neurological: Yes: Alert, Oriented Labs: Laboratory Results - last 24 hr 09/26/17 09/27/17 09/27/17 06:20 06:20 06:20 WBC 26.6 H RBC 4.04 Hgb 12.3 Hct 36.4 MCV 90.3 MCH 30.4 MCHC 33.7 RDW 14.0 Plt Count 274 MPV 7.7 Absolute Neuts (auto) 24.3 Neutrophils % 91.3 H Neutrophils % (Manual) 83.0 H Band Neutrophils % 3.8 Lymphocytes % 5.2 L Lymphocytes % (Manual) 5.7 L D Monocytes % 3.4 L D Monocytes % (Manual) 5 D Eosinophils % 0.0 Eosinophils % (Manual) 0.0 Basophils % 0.1 Basophils % (Manual) 0.0 Myelocytes % (Man) 1 D Promyelocytes % (Man) 0 Blast Cells % (Manual) 0 Nucleated RBC % 0 Metamyelocytes 1 D Hypochromia 0 Platelet Estimate Normal Polychromasia 0 Poikilocytosis 0 Anisocytosis 1+ Microcytosis 0 Macrocytosis 0 Sodium 140 137 Potassium 4.2 4.5 Chloride 103 103 Carbon Dioxide 24 26 Anion Gap 13 8 BUN 16 21 H Creatinine 1.4 H 1.2 Creat Clearance w eGFR 59.92 > 60 Random Glucose 100 D 107 H Calcium 8.6 D 9.0 Total Bilirubin 0.3 0.5 AST 32 31 ALT 64 64 Alkaline Phosphatase 87 78 C-Reactive Protein 3.8 H 1.6 H Total Protein 6.8 6.8 Albumin 2.7 L 2.9 L Lipase 09/27/17 09/27/17 06:20 06:20 WBC RBC Hgb Hct MCV MCH MCHC RDW Plt Count MPV Absolute Neuts (auto) Neutrophils % Neutrophils % (Manual) Band Neutrophils % Lymphocytes % Lymphocytes % (Manual) Monocytes % Monocytes % (Manual) Eosinophils % Eosinophils % (Manual) Basophils % Basophils % (Manual) Myelocytes % (Man) Promyelocytes % (Man) Blast Cells % (Manual) Nucleated RBC % Metamyelocytes Hypochromia Platelet Estimate Polychromasia Poikilocytosis Anisocytosis Microcytosis Macrocytosis Sodium Potassium Chloride Carbon Dioxide Anion Gap BUN Creatinine Creat Clearance w eGFR Random Glucose Calcium Total Bilirubin AST ALT Alkaline Phosphatase C-Reactive Protein Cancelled Total Protein Albumin Lipase 928 H Problem List (1) Allergic reaction Code(s): T78.40XA - ALLERGY, UNSPECIFIED, INITIAL ENCOUNTER (2) Acute bronchospasm Code(s): J98.01 - ACUTE BRONCHOSPASM (3) Abscess Code(s): L02.91 - CUTANEOUS ABSCESS, UNSPECIFIED (4) Multiple sclerosis Code(s): G35 - MULTIPLE SCLEROSIS Assessment/Plan Acute Bronchospasm Allergic Reaction Axillary Abscess s/p I&D Multiple Sclerosis Morbid Obesity Monitor off systemic steroids BD TX Local wound care ABX coverage O2 only as needed VTE prophylaxis Dr Grace
--- NOTE | 2017-09-27 11:24 | PN ---
Progress Note, Physician - Current Medication List Current Medications: Active Medications Albuterol Sulfate (Ventolin 0.083% Nebulizer Soln -) 1 amp NEB Q4H PRN PRN Reason: SHORT OF BREATH/WHEEZING Albuterol/Ipratropium (Duoneb -) 1 amp NEB RQID NAVEEN Last Admin: 09/27/17 07:44 Dose: 1 amp Calamine (Calamine 8% Topical Lotion -) 1 applic TP QID PRN PRN Reason: FOR ITCHING Diphenhydramine HCl (Benadryl Injection -) 25 mg IVPB Q12H PRN PRN Reason: FOR ITCHING Diphenhydramine HCl (Benadryl -) 25 mg PO Q6H PRN PRN Reason: FOR ITCHING Last Admin: 09/27/17 05:49 Dose: 25 mg Enoxaparin Sodium (Lovenox -) 40 mg SQ DAILY NAVEEN Last Admin: 09/27/17 09:50 Dose: 40 mg Clindamycin Phosphate (Cleocin 900 Mg Premix Ivpb -) 900 mg in 50 mls @ 100 mls /hr IVPB Q8H-IV NAVEEN; Protocol Last Admin: 09/27/17 09:50 Dose: 100 mls/hr Lactobacillus Acidophilus (Bacid -) 1 tab PO DAILY NAVEEN Last Admin: 09/27/17 09:50 Dose: 1 tab Morphine Sulfate (Morphine Sulfate) 4 mg IVPUSH Q4H PRN PRN Reason: PAIN LEVEL 7 - 10 Last Admin: 09/27/17 05:22 Dose: 4 mg Zolpidem Tartrate (Ambien -) 5 mg PO HS PRN PRN Reason: INSOMNIA - Objective Vital Signs: Vital Signs Temperature 98 F 09/27/17 09:46 Pulse Rate 83 09/27/17 09:46 Respiratory Rate 18 09/27/17 09:46 Blood Pressure 156/77 09/27/17 09:46 O2 Sat by Pulse Oximetry (%) 98 09/26/17 21:00 Labs: CBC, BMP 09/27/17 06:20 09/27/17 06:20 Problem List - Problems (1) Axillary hidradenitis suppurativa Code(s): L73.2 - HIDRADENITIS SUPPURATIVA (2) Fever Code(s): R50.9 - FEVER, UNSPECIFIED Qualifiers: Fever type: due to other condition Qualified Code(s): R50.81 - Fever presenting with conditions classified elsewhere (3) Obesity Code(s): E66.9 - OBESITY, UNSPECIFIED Qualifiers: Obesity type: due to excess calories Obesity classification: adult class 3 (BMI >= 40) Serious obesity comorbidity presence: with serious comorbidity Body mass index: BMI 50.0-59.9 Qualified Code(s): E66.01 - Morbid (severe) obesity due to excess calories; Z68.43 - Body mass index (BMI) 50-59.9 , adult (4) Abscess Code(s): L02.91 - CUTANEOUS ABSCESS, UNSPECIFIED (5) Immunocompromised Code(s): D84.9 - IMMUNODEFICIENCY, UNSPECIFIED (6) Multiple sclerosis Code(s): G35 - MULTIPLE SCLEROSIS
--- NOTE | 2017-09-27 13:59 | PN ---
Progress Note, Physician Chief Complaint: Right chest wall abscess History of Present Illness: 27 yo male with PMH Morbid obesity, MS who is s/p high dose steroid treatment 2 weeks ago who presented to the ED with a 5-6 day history of redness, pain and swelling to right right chest wall. He is stable after the second debridement. - Current Medication List Current Medications: Active Medications Albuterol Sulfate (Ventolin 0.083% Nebulizer Soln -) 1 amp NEB Q4H PRN PRN Reason: SHORT OF BREATH/WHEEZING Albuterol/Ipratropium (Duoneb -) 1 amp NEB RQID NAVEEN Last Admin: 09/27/17 07:44 Dose: 1 amp Calamine (Calamine 8% Topical Lotion -) 1 applic TP QID PRN PRN Reason: FOR ITCHING Diphenhydramine HCl (Benadryl Injection -) 25 mg IVPB Q12H PRN PRN Reason: FOR ITCHING Diphenhydramine HCl (Benadryl -) 25 mg PO Q6H PRN PRN Reason: FOR ITCHING Last Admin: 09/27/17 05:49 Dose: 25 mg Enoxaparin Sodium (Lovenox -) 40 mg SQ DAILY NAVEEN Last Admin: 09/27/17 09:50 Dose: 40 mg Clindamycin Phosphate (Cleocin 900 Mg Premix Ivpb -) 900 mg in 50 mls @ 100 mls /hr IVPB Q8H-IV NAVEEN; Protocol Last Admin: 09/27/17 09:50 Dose: 100 mls/hr Lactobacillus Acidophilus (Bacid -) 1 tab PO DAILY NAVEEN Last Admin: 09/27/17 09:50 Dose: 1 tab Morphine Sulfate (Morphine Sulfate) 4 mg IVPUSH Q4H PRN PRN Reason: PAIN LEVEL 7 - 10 Last Admin: 09/27/17 13:14 Dose: 4 mg Zolpidem Tartrate (Ambien -) 5 mg PO HS PRN PRN Reason: INSOMNIA - Objective Vital Signs: Vital Signs Temperature 98.2 F 09/27/17 13:46 Pulse Rate 86 09/27/17 13:46 Respiratory Rate 18 09/27/17 13:46 Blood Pressure 130/81 09/27/17 13:46 O2 Sat by Pulse Oximetry (%) 98 09/26/17 21:00 Vital Signs Period Temp Pulse Resp BP Sys/Leon Pulse Ox Last 24 Hr 97.7 F-98.7 F 75-111 18-20 113-156/53-96 95-98 Constitutional: Yes: Well Nourished, No Distress, Calm, Obese Eyes: Yes: Conjunctiva Clear, EOM Intact HENT: Yes: Atraumatic, Normocephalic Neck: Yes: Supple, Trachea Midline Cardiovascular: Yes: Regular Rate and Rhythm, S1, S2 Respiratory: Yes: Regular, CTA Bilaterally Gastrointestinal: Yes: Normal Bowel Sounds, Soft, Abdomen, Obese. No: Tenderness, Tenderness, Epigastrium, Tenderness, Rebound ...Rectal Exam: Yes: Deferred Genitourinary: No: CVA Tenderness - Left, CVA Tenderness - Right Extremities: No: Cool, Cyanosis Wound/Incision: Yes: Clean/Dry, Dressing Dry and Intact (VAC) Neurological: Yes: Alert, Oriented Psychiatric: Yes: Alert, Oriented Labs: CBC, BMP 09/27/17 06:20 09/27/17 06:20 Problem List - Problems (1) Cellulitis Assessment/Plan: 27 yo male MMP with agressive soft tissue infection right lateral chest wall POD #5 and 1 s/p Incision and Drainage of Right lateral chest well abscess. VAC dessing in place and draining ~20ml purulent, presumptive MSSA Management per primary team IV antibiotics per ID VAC Dressing application Right lateral chest wall Frequency: every 3-5days Measurement: [id number] oval seropurulent drainage, with 4cm of surrounding erythema Dressing: small granulofoam, with VAC freedom Discharge home with VAC freedom. Code(s): L03.90 - CELLULITIS, UNSPECIFIED Qualifiers: Site of cellulitis: trunk Site of cellulitis of trunk: chest wall Qualified Code(s): L03.313 - Cellulitis of chest wall (2) Fever Code(s): R50.9 - FEVER, UNSPECIFIED Qualifiers: Fever type: due to other condition Qualified Code(s): R50.81 - Fever presenting with conditions classified elsewhere (3) Obesity Code(s): E66.9 - OBESITY, UNSPECIFIED Qualifiers: Obesity type: due to excess calories Obesity classification: adult class 3 (BMI >= 40) Serious obesity comorbidity presence: with serious comorbidity Body mass index: BMI 50.0-59.9 Qualified Code(s): E66.01 - Morbid (severe) obesity due to excess calories; Z68.43 - Body mass index (BMI) 50-59.9 , adult (4) Abscess Code(s): L02.91 - CUTANEOUS ABSCESS, UNSPECIFIED (5) Immunocompromised Code(s): D84.9 - IMMUNODEFICIENCY, UNSPECIFIED (6) Multiple sclerosis Code(s): G35 - MULTIPLE SCLEROSIS
[2017-09-28] MEDS: morphine SULFATE 4 MG/ML VIAL IVPUSH PRN ×4 (00:14→17:38)
[2017-09-28] MEDS: CLINDAMYCIN 900 MG PREMIX IVPB 900 MG/50 ML BAG IVPB SCH (01:53)
[2017-09-28] MEDS: ALBUTEROL SO4 2.5/IPRATROPIUM 0.5 INH SOL 3 ML VIAL.NEB. NEB SCH ×4 (07:32→20:56)
--- NOTE | 2017-09-28 08:00 | OP ---
DATE OF OPERATION: 09/26/2017 PREOPERATIVE DIAGNOSIS: Right soft tissue flank infection. POSTOPERATIVE DIAGNOSIS: Right soft tissue flank infection. PROCEDURE: Irrigation and debridement, right flank infection; placement of vacuum-assisted closure dressing. ATTENDING SURGEON: Arnold Arreguin MD MIDDLE CARD TENDER: No one. ANESTHESIA: Abraham Loja ANESTHESIA: General with local, local-assisted, 0.5% Marcaine, total of 20 mL. ESTIMATED BLOOD LOSS: 2 mL. INTRAVENOUS FLUID REPLACED: 400 mL of crystalloid. INSTRUMENTS USED FOR DEBRIDEMENT: Bovie cautery and scalpel. BRIEF FINDINGS: Seropurulent drainage in the area of gangrene adjacent to the undermining at 6 o'clock of the defect previously-created in surgery. PROCEDURE: The patient was brought to the operating room and placed in the supine position on the operating table with the right arm extended 90 degrees perpendicular to the body's axis. The right flank was prepped and draped into a standard surgical field. The patient had lower extremity SCDs placed to compression. The patient was induced to general anesthesia and an LMA was placed by Anesthesia without incident. When the patient was stable, a formal timeout was completed, identifying the operative site and laterality. With all parties in agreement, we began first with extension of the previous incision using a scalpel. Along the posterior rim at the 6 o'clock position, there was undermining, which was probed by the finger and then cored out using cautery to establish hemostasis throughout the dissection. The area of necrosis was removed. There was a small amount of seropurulent material, which was not cultured, but irrigated from the wound with approximately a half-liter of sterile irrigation fluid. The remainder of the undermining, which was towards the anterior right breast, was also probed with a finger. The wound edges themselves were then debrided to healthy tissue, where unhealthy and the remaining granulating tissue was rubbed until bleeding. The entire wound was irrigated with an additional liter of sterile irrigation fluid, at which point we proceeded then with obtaining hemostasis in the bleeding puncta along the skin margin. The decision was made then to apply a VAC dressing, given the wound was quite clean at the end of the case. The rim of erythema was marked with a purple surgical marker. The GranuFoam was then selected and cut to size. It was installed into the wound and checked for size and trimmed appropriately with the scissors, at which point we then proceeded with drying the skin and cleaning it and then placing the drape according to the VAC protocol for placement. Once placed to 125 mmHg negative pressure, the wound immediately came to suction and there was no leak detected. The patient was awoken from anesthesia, having tolerated the procedure well. Counts were correct. Returned to recovery in stable condition. MD LUIS ENRIQUE Miller/[id number]
--- NOTE | 2017-09-28 08:17 | PN ---
Progress Note, Physician Chief Complaint: ID Complains of some pain at VAC site IV Clindamycin - Current Medication List Current Medications: Active Medications Albuterol Sulfate (Ventolin 0.083% Nebulizer Soln -) 1 amp NEB Q4H PRN PRN Reason: SHORT OF BREATH/WHEEZING Last Admin: 09/27/17 23:30 Dose: 1 amp Albuterol/Ipratropium (Duoneb -) 1 amp NEB RQID [facility] Last Admin: 09/28/17 07:32 Dose: 1 amp Calamine (Calamine 8% Topical Lotion -) 1 applic TP QID PRN PRN Reason: FOR ITCHING Diphenhydramine HCl (Benadryl Injection -) 25 mg IVPB Q12H PRN PRN Reason: FOR ITCHING Diphenhydramine HCl (Benadryl -) 25 mg PO Q6H PRN PRN Reason: FOR ITCHING Last Admin: 09/27/17 05:49 Dose: 25 mg Enoxaparin Sodium (Lovenox -) 40 mg SQ DAILY [facility] Last Admin: 09/27/17 09:50 Dose: 40 mg Clindamycin Phosphate (Cleocin 900 Mg Premix Ivpb -) 900 mg in 50 mls @ 100 mls /hr IVPB Q8H-IV [facility]AVE[facility]; Protocol Last Admin: 09/28/17 01:53 Dose: 100 mls/hr Lactobacillus Acidophilus (Bacid -) 1 tab PO DAILY [facility] Last Admin: 09/27/17 09:50 Dose: 1 tab Morphine Sulfate (Morphine Sulfate) 4 mg IVPUSH Q4H PRN PRN Reason: PAIN LEVEL 7 - 10 Last Admin: 09/28/17 07:27 Dose: 4 mg Zolpidem Tartrate (Ambien -) 5 mg PO HS PRN PRN Reason: INSOMNIA - Objective Vital Signs: Vital Signs Temperature 97.9 F 09/28/17 05:49 Pulse Rate 69 09/28/17 05:49 Respiratory Rate 20 09/28/17 05:49 Blood Pressure 113/59 09/28/17 05:49 O2 Sat by Pulse Oximetry (%) 96 09/27/17 21:00 Constitutional: Yes: No Distress Cardiovascular: Yes: S2 Respiratory: Yes: WNL, Regular, CTA Bilaterally Gastrointestinal: Yes: Soft. No: Tenderness Labs: CBC, BMP 09/27/17 06:20 09/27/17 06:20 Problem List - Problems (1) Cellulitis Code(s): L03.90 - CELLULITIS, UNSPECIFIED Qualifiers: Site of cellulitis: trunk Site of cellulitis of trunk: chest wall Qualified Code(s): L03.313 - Cellulitis of chest wall (2) Abscess Code(s): L02.91 - CUTANEOUS ABSCESS, UNSPECIFIED (3) Obesity Code(s): E66.9 - OBESITY, UNSPECIFIED Qualifiers: Obesity type: due to excess calories Obesity classification: adult class 3 (BMI >= 40) Serious obesity comorbidity presence: with serious comorbidity Body mass index: BMI 50.0-59.9 Qualified Code(s): E66.01 - Morbid (severe) obesity due to excess calories; Z68.43 - Body mass index (BMI) 50-59.9 , adult (4) Multiple sclerosis Code(s): G35 - MULTIPLE SCLEROSIS (5) Allergic reaction Code(s): T78.40XA - ALLERGY, UNSPECIFIED, INITIAL ENCOUNTER Assessment/Plan Laboratory Tests 09/26/17 09/27/17 06:20 06:20 C-Reactive Protein 3.8 H 1.6 H Assessment Ready for oral antibiotic and discharge if surgery agreement ORal Clindamycin Off steroids
[2017-09-28] MEDS: LACTOBACILLUS ACIDOPHILUS 1 TABLET PO SCH (10:54)
[2017-09-28] MEDS: ENOXAPARIN NA (PORCINE) 40 MG/0.4 ML DISP.SYRIN SQ SCH (10:55)
[2017-09-28] MEDS: CLINDAMYCIN HCL 150 MG CAPSULE (FP) PO SCH ×2 (13:30→23:21)
--- NOTE | 2017-09-28 16:07 | PN ---
Progress Note (short form) - Note Progress Note: pt seen/ examined chart reviewed events noted complains of pain at the vacume site Otherwise feels okay All follow-ups noted Do not want to go home today--- possible tomorrow after surgical follow-up-- WBC--- high--- but patient on steroids Afebrile Vital Signs Temp 98 F 09/28/17 10:00 Pulse 94 H 09/28/17 10:00 Resp 18 09/28/17 10:00 BP 122/87 09/28/17 10:00 Pulse Ox 96 09/28/17 09:00 Intake & Output 09/27/17 09/28/17 09/28/17 23:59 11:59 23:59 Intake Total 550 250 240 Balance 550 250 240 Intake: IVPB 100 50 0 Oral 450 200 240 Other: Voiding Method Toilet Toilet # Unmeasured Voids Void 1 Bowel Movement No Active Medications Albuterol Sulfate (Ventolin 0.083% Nebulizer Soln -) 1 amp NEB Q4H PRN PRN Reason: SHORT OF BREATH/WHEEZING Last Admin: 09/27/17 23:30 Dose: 1 amp Albuterol/Ipratropium (Duoneb -) 1 amp NEB RQID [facility] Last Admin: 09/28/17 07:32 Dose: 1 amp Calamine (Calamine 8% Topical Lotion -) 1 applic TP QID PRN PRN Reason: FOR ITCHING Clindamycin HCl (Cleocin -) 450 mg PO TID [facility] Last Admin: 09/28/17 13:30 Dose: 450 mg Diphenhydramine HCl (Benadryl Injection -) 25 mg IVPB Q12H PRN PRN Reason: FOR ITCHING Diphenhydramine HCl (Benadryl -) 25 mg PO Q6H PRN PRN Reason: FOR ITCHING Last Admin: 09/27/17 05:49 Dose: 25 mg Enoxaparin Sodium (Lovenox -) 40 mg SQ DAILY [facility] Last Admin: 09/28/17 10:55 Dose: 40 mg Lactobacillus Acidophilus (Bacid -) 1 tab PO DAILY [facility] Last Admin: 09/28/17 10:54 Dose: 1 tab Morphine Sulfate (Morphine Sulfate) 4 mg IVPUSH Q4H PRN PRN Reason: PAIN LEVEL 7 - 10 Last Admin: 09/28/17 13:29 Dose: 4 mg Zolpidem Tartrate (Ambien -) 5 mg PO HS PRN PRN Reason: INSOMNIA CBC, BMP 09/27/17 06:20 09/27/17 06:20 Microbiology 09/21/17 22:57 Blood Culture - Preliminary Blood - Peripheral Venous NO GROWTH OBTAINED AFTER 96 HOURS, INCUBATION TO CONTINUE FOR 1 DAYS. 09/21/17 22:57 Blood Culture - Preliminary Blood - Peripheral Venous NO GROWTH OBTAINED AFTER 96 HOURS, INCUBATION TO CONTINUE FOR 1 DAYS. 09/22/17 18:30 Gram Stain - Final Abscess Wound Culture - Final Staphylococcus Aureus Physical Constitutional: Yes: No Distress, Calm/ comfortable Cardiovascular: Yes: Regular Rate and Rhythm Respiratory: Yes: CTA Bilaterally Gastrointestinal: Yes: Normal Bowel Sounds, Soft, Abdomen, Obese. No: Tenderness Edema: No Integumentary: Yes: Rash (generalized raised lesions), Other (erythema at right axilla and back has decreased, no tenderness, wound vac+) Assessment/Plan better off steroids antibiotics--clindamycin continue wound vac f/u CBC tomorrow dvt prophylaxis anticipate discharge tomorrow. Problem List - Problems (1) Axillary hidradenitis suppurativa Code(s): L73.2 - HIDRADENITIS SUPPURATIVA (2) Cellulitis Code(s): L03.90 - CELLULITIS, UNSPECIFIED Qualifiers: Site of cellulitis: trunk Site of cellulitis of trunk: chest wall Qualified Code(s): L03.313 - Cellulitis of chest wall (3) Obesity Code(s): E66.9 - OBESITY, UNSPECIFIED Qualifiers: Obesity type: due to excess calories Obesity classification: adult class 3 (BMI >= 40) Serious obesity comorbidity presence: with serious comorbidity Body mass index: BMI 50.0-59.9 Qualified Code(s): E66.01 - Morbid (severe) obesity due to excess calories; Z68.43 - Body mass index (BMI) 50-59.9 , adult (4) Abscess Code(s): L02.91 - CUTANEOUS ABSCESS, UNSPECIFIED (5) Immunocompromised Code(s): D84.9 - IMMUNODEFICIENCY, UNSPECIFIED (6) Multiple sclerosis Code(s): G35 - MULTIPLE SCLEROSIS (7) Insomnia Code(s): G47.00 - INSOMNIA, UNSPECIFIED
--- NOTE | 2017-09-28 22:26 | PN ---
Progress Note, Physician Chief Complaint: Right chest wall abscess History of Present Illness: 27 yo male with PMH Morbid obesity, MS who is s/p high dose steroid treatment 2 weeks ago who presented to the ED with a 5-6 day history of redness, pain and swelling to right right chest wall. He is stable after the second debridement. - Current Medication List Current Medications: Active Medications Albuterol Sulfate (Ventolin 0.083% Nebulizer Soln -) 1 amp NEB Q4H PRN PRN Reason: SHORT OF BREATH/WHEEZING Last Admin: 09/27/17 23:30 Dose: 1 amp Albuterol/Ipratropium (Duoneb -) 1 amp NEB RQID [facility]S [facility]CLUDE 234 BEDS AT THE [facility] Last Admin: 09/28/17 20:56 Dose: 1 amp Calamine (Calamine 8% Topical Lotion -) 1 applic TP QID PRN PRN Reason: FOR ITCHING Clindamycin HCl (Cleocin -) 450 mg PO TID COUNTS INCLUDE 234 BEDS AT THE [facility] Last Admin: 09/28/17 13:30 Dose: 450 mg Diphenhydramine HCl (Benadryl Injection -) 25 mg IVPB Q12H PRN PRN Reason: FOR ITCHING Diphenhydramine HCl (Benadryl -) 25 mg PO Q6H PRN PRN Reason: FOR ITCHING Last Admin: 09/27/17 05:49 Dose: 25 mg Enoxaparin Sodium (Lovenox -) 40 mg SQ DAILY [facility]CLUDE 234 BEDS AT THE [facility] Last Admin: 09/28/17 10:55 Dose: 40 mg Lactobacillus Acidophilus (Bacid -) 1 tab PO DAILY [facility] 234 BEDS AT THE [facility] Last Admin: 09/28/17 10:54 Dose: 1 tab Morphine Sulfate (Morphine Sulfate) 4 mg IVPUSH Q4H PRN PRN Reason: PAIN LEVEL 7 - 10 Last Admin: 09/28/17 17:38 Dose: 4 mg Zolpidem Tartrate (Ambien -) 5 mg PO HS PRN PRN Reason: INSOMNIA - Objective Vital Signs: Vital Signs Temperature 97.9 F 09/28/17 19:09 Pulse Rate 101 H 09/28/17 19:09 Respiratory Rate 18 09/28/17 19:09 Blood Pressure 135/84 09/28/17 19:09 O2 Sat by Pulse Oximetry (%) 96 09/28/17 09:00 Vital Signs Period Temp Pulse Resp BP Sys/Leon Pulse Ox Last 24 Hr 97.9 F-98 F 69-101 18-20 113-135/59-87 96 Constitutional: Yes: Well Nourished, No Distress, Calm, Obese Eyes: Yes: Conjunctiva Clear, EOM Intact HENT: Yes: Atraumatic, Normocephalic Neck: Yes: Supple, Trachea Midline Cardiovascular: Yes: Regular Rate and Rhythm, S1, S2 Respiratory: Yes: Regular, CTA Bilaterally Gastrointestinal: Yes: Normal Bowel Sounds, Soft, Abdomen, Obese. No: Tenderness, Tenderness, Epigastrium ...Rectal Exam: Yes: Deferred Breast(s): Yes: Gynecomastia Musculoskeletal: No: Muscle Pain, Muscle Weakness Extremities: No: Cool, Cyanosis Peripheral Pulses WNL: Yes Peripheral Pulses: Left Doralis Pedis: 2+, Right Dorsalis Pedis: 2+ Wound/Incision: Yes: Clean/Dry, Dressing Dry and Intact, Unapproximated Neurological: Yes: Alert, Oriented Psychiatric: Yes: Alert, Oriented Labs: CBC, BMP 09/27/17 06:20 09/27/17 06:20 Problem List - Problems (1) Cellulitis Assessment/Plan: 27 yo male MMP with agressive soft tissue infection right lateral chest wall POD #5 and 1 s/p Incision and Drainage of Right lateral chest well abscess. VAC dessing in place and draining ~20ml purulent, MSSA Management per primary team IV antibiotics per ID VAC Dressing application Right lateral chest wall Frequency: every 3-5days Measurement: [id number] oval seropurulent drainage, with 4cm of surrounding erythema Dressing: small granulofoam, with VAC freedom Please discharge home with VAC freedom Code(s): L03.90 - CELLULITIS, UNSPECIFIED Qualifiers: Site of cellulitis: trunk Site of cellulitis of trunk: chest wall Qualified Code(s): L03.313 - Cellulitis of chest wall (2) Fever Code(s): R50.9 - FEVER, UNSPECIFIED Qualifiers: Fever type: due to other condition Qualified Code(s): R50.81 - Fever presenting with conditions classified elsewhere (3) Obesity Code(s): E66.9 - OBESITY, UNSPECIFIED Qualifiers: Obesity type: due to excess calories Obesity classification: adult class 3 (BMI >= 40) Serious obesity comorbidity presence: with serious comorbidity Body mass index: BMI 50.0-59.9 Qualified Code(s): E66.01 - Morbid (severe) obesity due to excess calories; Z68.43 - Body mass index (BMI) 50-59.9 , adult (4) Abscess Code(s): L02.91 - CUTANEOUS ABSCESS, UNSPECIFIED (5) Immunocompromised Code(s): D84.9 - IMMUNODEFICIENCY, UNSPECIFIED (6) Multiple sclerosis Code(s): G35 - MULTIPLE SCLEROSIS
[2017-09-29] MEDS: morphine SULFATE 4 MG/ML VIAL IVPUSH PRN ×2 (01:38→05:49)
[2017-09-29] MEDS: CLINDAMYCIN HCL 150 MG CAPSULE (FP) PO SCH (05:48)
[2017-09-29] MEDS: ALBUTEROL SO4 2.5/IPRATROPIUM 0.5 INH SOL 3 ML VIAL.NEB. NEB SCH (07:46)
[2017-09-29] MEDS ORDERED: morphine CARPU-JECT 2 MG/1 ML DISP.SYRIN IVPUSH ONE (08:30)
[2017-09-29] MEDS ORDERED: morphine SULFATE 4 MG/ML VIAL IVPUSH ONE (08:30)
[2017-09-29 08:34] LABS: BASO % 0.6 % (0-2.0); EOS % 3.1 % (0-4.5); HEMATOCRIT 38.5 % (35.4-49); HEMOGLOBIN 12.9 GM/dL (11.7-16.9); LYMPH % 18.2 % (8-40); MCH 30.1 pg (25.7-33.7); MCHC 33.6 g/dl (32.0-35.9); MEAN CELL VOLUME 89.7 fl (80-96); MEAN PLT VOLUME 7.1 fl (7.5-11.1); MONO % 7.3 % (3.8-10.2); NEUT % 70.8 % (42.8-82.8); PLATELET COUNT 275 K/MM3 (134-434); RDW 13.8 % (11.9-15.9); WHITE BLOOD COUNT 16.9 K/mm3 (4.0-10.0)
--- NOTE | 2017-09-29 08:40 | PN ---
Progress Note, Physician Chief Complaint: Right chest wall abscess History of Present Illness: 27 yo male with PMH Morbid obesity, MS who is s/p high dose steroid treatment 2 weeks ago who presented to the ED with a 5-6 day history of redness, pain and swelling to right right chest wall. He is stable after the second debridement. - Current Medication List Current Medications: Active Medications Albuterol Sulfate (Ventolin 0.083% Nebulizer Soln -) 1 amp NEB Q4H PRN PRN Reason: SHORT OF BREATH/WHEEZING Last Admin: 09/27/17 23:30 Dose: 1 amp Albuterol/Ipratropium (Duoneb -) 1 amp NEB RQID [facility] Last Admin: 09/29/17 07:46 Dose: Not Given Calamine (Calamine 8% Topical Lotion -) 1 applic TP QID PRN PRN Reason: FOR ITCHING Clindamycin HCl (Cleocin -) 450 mg PO TID [facility] Last Admin: 09/29/17 05:48 Dose: 450 mg Diphenhydramine HCl (Benadryl Injection -) 25 mg IVPB Q12H PRN PRN Reason: FOR ITCHING Diphenhydramine HCl (Benadryl -) 25 mg PO Q6H PRN PRN Reason: FOR ITCHING Last Admin: 09/27/17 05:49 Dose: 25 mg Enoxaparin Sodium (Lovenox -) 40 mg SQ DAILY [facility] Last Admin: 09/28/17 10:55 Dose: 40 mg Lactobacillus Acidophilus (Bacid -) 1 tab PO DAILY [facility] Last Admin: 09/28/17 10:54 Dose: 1 tab Morphine Sulfate (Morphine Sulfate) 4 mg IVPUSH Q4H PRN PRN Reason: PAIN LEVEL 7 - 10 Last Admin: 09/29/17 05:49 Dose: 4 mg Morphine Sulfate (Morphine Injection -) 4 mg IVPUSH NOW ONE Stop: 09/29/17 08:31 Last Admin: 09/29/17 08:32 Dose: 4 mg Zolpidem Tartrate (Ambien -) 5 mg PO HS PRN PRN Reason: INSOMNIA - Objective Vital Signs: Vital Signs Temperature 98.9 F 09/29/17 05:53 Pulse Rate 73 09/29/17 05:53 Respiratory Rate 18 09/29/17 05:53 Blood Pressure 144/74 09/29/17 05:53 O2 Sat by Pulse Oximetry (%) 96 09/28/17 21:00 Vital Signs Period Temp Pulse Resp BP Sys/Leon Pulse Ox Last 24 Hr 97.9 F-98.9 F 70-101 18-18 122-144/69-87 96-96 Constitutional: Yes: Well Nourished, No Distress, Calm, Obese Eyes: Yes: Conjunctiva Clear, EOM Intact HENT: Yes: Atraumatic, Normocephalic Neck: Yes: Supple, Trachea Midline Cardiovascular: Yes: Regular Rate and Rhythm, S1, S2 Respiratory: Yes: Regular, CTA Bilaterally Gastrointestinal: Yes: Normal Bowel Sounds, Soft, Abdomen, Obese. No: Tenderness ...Rectal Exam: Yes: Deferred Genitourinary: No: CVA Tenderness - Left, CVA Tenderness - Right Extremities: No: Cool, Cyanosis Edema: Yes Peripheral Pulses WNL: No Peripheral Pulses: Left Doralis Pedis: 2+, Right Dorsalis Pedis: 2+ Wound/Incision: Yes: Clean/Dry, Dressing Dry and Intact, Dressing Removed (VAC desssion changed 09/29/2017), Unapproximated Neurological: Yes: Alert, Oriented Psychiatric: Yes: Alert, Oriented Labs: CBC, BMP 09/29/17 07:30 09/27/17 06:20 Problem List - Problems (1) Cellulitis Assessment/Plan: 27 yo male MMP with agressive soft tissue infection right lateral chest wall POD #5 and 1 s/p Incision and Drainage of Right lateral chest well abscess. VAC dessing in place and draining ~20ml purulent, MSSA Management per primary team IV antibiotics per ID VAC Dressing (changed 09/29/2017) Location: Right lateral chest wall Frequency: every 3-5days Measurement: [id number] oval seropurulent drainage, with minimal erythema Dressing: small granulofoam, with VAC freedom Please discharge home with VAC freedom Code(s): L03.90 - CELLULITIS, UNSPECIFIED Qualifiers: Site of cellulitis: trunk Site of cellulitis of trunk: chest wall Qualified Code(s): L03.313 - Cellulitis of chest wall (2) Fever Code(s): R50.9 - FEVER, UNSPECIFIED Qualifiers: Fever type: due to other condition Qualified Code(s): R50.81 - Fever presenting with conditions classified elsewhere (3) Obesity Code(s): E66.9 - OBESITY, UNSPECIFIED Qualifiers: Obesity type: due to excess calories Obesity classification: adult class 3 (BMI >= 40) Serious obesity comorbidity presence: with serious comorbidity Body mass index: BMI 50.0-59.9 Qualified Code(s): E66.01 - Morbid (severe) obesity due to excess calories; Z68.43 - Body mass index (BMI) 50-59.9 , adult (4) Abscess Code(s): L02.91 - CUTANEOUS ABSCESS, UNSPECIFIED (5) Immunocompromised Code(s): D84.9 - IMMUNODEFICIENCY, UNSPECIFIED (6) Multiple sclerosis Code(s): G35 - MULTIPLE SCLEROSIS
--- NOTE | 2017-09-29 09:46 | DS ---
Physical Examination Vital Signs: Vital Signs Temperature 98.9 F 09/29/17 05:53 Pulse Rate 73 09/29/17 05:53 Respiratory Rate 18 09/29/17 05:53 Blood Pressure 144/74 09/29/17 05:53 O2 Sat by Pulse Oximetry (%) 96 09/28/17 21:00 Findings/Remarks: feels better vac dressing changed today denies pain' afebrile Constitutional: Yes: Calm, Obese Eyes: Yes: Conjunctiva Clear Neck: Yes: Supple Cardiovascular: Yes: Regular Rate and Rhythm Respiratory: Yes: CTA Bilaterally Gastrointestinal: Yes: Soft, Abdomen, Obese Edema: No Wound/Incision: Yes: Other (vac in place) Psychiatric: Yes: Alert Labs: CBC, BMP 09/29/17 07:30 09/27/17 06:20 Discharge Summary Reason For Visit: CELLULITIS AXILLARY HYDRADENTIIS SUPPURA Current Active Problems Acute bronchospasm (Acute) Allergic reaction (Acute) Axillary hidradenitis suppurativa (Acute) Cellulitis (Acute) Fever (Acute) Insomnia (Acute) Obesity (Acute) Hospital Course: 27 yo male MMP with agressive soft tissue infection right lateral chest wall Underwent -- s/p Incision and Drainage of Right lateral chest well abscess. VAC dessing in place and draining MSSA treated with i/v abx now stable for d/c on po abx pt advised to follow closely instructions given meds prescribed f/u in office in one week pt in agreement Condition: Improved - Instructions Diet, Activity, Other Instructions: Postoperative instructions: You had a incision and drainage and debridement of right chest wall infection on 09/22/[address] Arnold Arreguin of [facility]. VAC Dressing instructions (changed 09/29/2017): Location: Right lateral chest wall Frequency: every 3-5days Measurement: [id number] oval seropurulent drainage, with minimal surrounding erythema Dressing: small granulofoam, with VAC freedom Activity: Resume your usual activities gradually, but no heavy exertion or lifting more than 10-15 pounds for 4-6 weeks. Eat lightly at first, but advance to your usual diet as tolerated. Pain: For pain, you may use and alternate Tylenol (acetaminophen) and/or ibuprofen every 6 hours each as needed; this means that you can take one OR the other at 3-hour intervals. If you are prescribed a Tylenol/narcotic combination for severe pain, use it instead of plain Tylenol as needed and switch back when your pain starts decreasing. Do not take more than 4000mg of acetaminophen in a day. Take medications as prescribed or indicated on the labeling. Follow-up: Call Dr. Chávez's office at [phone] to make your postop appointment (Friday 1-2 weeks after surgery as advised). Clinic is held in the [facility] on the first floor of [facility]. Call the office if you have: * increasing pain not responsive to pain medication * fever of 101F or higher * unusual or increasing bleeding or drainage from wounds * increasing redness or swelling at wound sites Also, see your primary medical doctor within 1-2 weeks. Disposition: HOME - Home Medications Comprehensive Discharge Medication List: Ambulatory Orders Interferon Beta-1B [Betaseron] 0.3 mg SQ Q48H 10/26/13 Acetaminophen [Tylenol .Regular Strength -] 325 mg PO Q4H PRN #0 tablet Ibuprofen [Motrin -] 400 mg PO Q8H PRN #0 tablet 10/28/13 Calamine 8% Topical Lotion - 1 applic TP QID PRN #1 bottle 09/29/17 Clindamycin [Cleocin -] 450 mg PO TID #21 capsule 09/29/17 Diphenhydramine HCl [Benadryl Capsule -] 25 mg PO Q8H PRN #30 capsule 09/29/17 Lactobacillus Acidophilus [Bacid -] 1 tab PO DAILY #15 tab 09/29/17
[2017-09-29] MEDS: ENOXAPARIN NA (PORCINE) 40 MG/0.4 ML DISP.SYRIN SQ SCH (10:31)
[2017-09-29] MEDS: LACTOBACILLUS ACIDOPHILUS 1 TABLET PO SCH (10:31)
[2017-09-29 10:57] VITALS: BP 134/70; PULSE 79; TEMP 98.2
[2017-09-29 14:49] LABS: ANISOCYTOSIS 3+; MACROCYTOSIS 0; PLATELET ESTIMATE NORMAL
== END 2017-09-29 11:32 | disposition home or self-care (01) | DRG 383 ==
LOC: JER 20:10 → OBSVTOIN 09-22 00:58 → JERBED 09-22 00:58 → J7W 09-22 05:14
PROVIDERS: ADMIT Internal Medicine; ATTEND Internal Medicine
PROC: 0J960ZX Drainage of Chest Subcutaneous Tissue and Fascia, Open Approach, Diagnostic (ICD-10-PCS; principal; 2017-09-22 16:00)
PROC: 0JB60ZX Excision of Chest Subcutaneous Tissue and Fascia, Open Approach, Diagnostic (ICD-10-PCS; 2017-09-26)
DX: L03.111 Cellulitis of right axilla (principal); L02.411 Cutaneous abscess of right axilla; I96 Gangrene, not elsewhere classified; D84.9 Immunodeficiency, unspecified; G35 Multiple sclerosis; E66.01 Morbid (severe) obesity due to excess calories; Z68.43 Body mass index [BMI] 50.0-59.9, adult; L73.2 Hidradenitis suppurativa; G47.00 Insomnia, unspecified; R00.0 Tachycardia, unspecified; L50.0 Allergic urticaria; T40.2X5A Adverse effect of other opioids, initial encounter; J98.01 Acute bronchospasm; B95.61 Methicillin susceptible Staphylococcus aureus infection as the cause of diseases classified elsewhere
CPT/HCPCS: 36415; 71045-TC-FY; 80048; 80053; 82550; 83605; 83690; 83735; 84100; 84484; 85025; 85651; 86140; 87040; 87070; 87086; 87186; 87205; 87389; 93005; 93010; 94010; 94640; 94760; 99282-25; J0131; J7620

== ENCOUNTER 2018-04-06 09:45 | Emergency (ER) | payer OTHER ==
[2018-04-06 10:18] VITALS: BP 119/62; PULSE 81; TEMP 97.9; BMI 50.8
--- NOTE | 2018-04-06 10:45 | PDOC ---
History of Present Illness - General History Source: Patient - History of Present Illness Timing/Duration: other <Kaela Zee - Last Filed: 04/06/18 12:39> <Manoj Aparicio - Last Filed: 04/09/18 09:23> - General Chief Complaint: Weakness Stated Complaint: MS RELAPSE Time Seen by Provider: 04/06/18 10:34 Past History - Past Medical History COPD: No Other medical history: MS - Surgical History Abdominal Surgery: Yes (HERNIA) GI Surgery: Yes (Hernia Repair) - Immunization History Immunization Up to Date: Yes (2011) - Suicide/Smoking/Psychosocial Hx Smoking Status: Yes Smoking History: Never smoked Have you smoked in the past 12 months: No Number of Cigarettes Smoked Daily: 1 'Breaking Loose' booklet given: 10/26/13 Hx Alcohol Use: Yes Drug/Substance Use Hx: Yes ([facility]) Substance Use Type: None Hx Substance Use Treatment: No <Kaela Zee - Last Filed: 04/06/18 12:39> <Manoj Aparicio - Last Filed: 04/09/18 09:23> - Past Medical History Allergies/Adverse Reactions: Allergies Allergy/AdvReac Type Severity Reaction Status Date / Time interferon beta-1b Allergy Verified 04/06/18 10:12 [From Betaseron] kiwi Allergy Verified 04/06/18 10:12 oxycodone Allergy Hives Verified 04/06/18 10:12 glatiramer acetate AdvReac Verified 04/06/18 10:12 [From Copaxone] eggplant Allergy Uncoded 04/06/18 10:12 Home Medications: Ambulatory Orders Interferon Beta-1B [Betaseron] 0.3 mg SQ Q48H 10/26/13 Acetaminophen [Tylenol .Regular Strength -] 325 mg PO Q4H PRN #0 tablet Ibuprofen [Motrin -] 400 mg PO Q8H PRN #0 tablet 10/28/13 Calamine 8% Topical Lotion - 1 applic TP QID PRN #1 bottle 09/29/17 Clindamycin [Cleocin -] 450 mg PO TID #21 capsule 09/29/17 Diphenhydramine HCl [Benadryl Capsule -] 25 mg PO Q8H PRN #30 capsule 07/09/18 Lactobacillus Acidophilus [Bacid -] 1 tab PO DAILY #15 tab 09/29/17 Review of Systems - Review of Systems Constitutional: No: Chills, Fever HEENTM: No: Blurred Vision Musculoskeletal: Yes: Muscle Weakness Neurological: No: Headache, Numbness, Tingling, Dizziness <Kaela Zee - Last Filed: 04/06/18 12:39> *Physical Exam - Vital Signs Last Vital Signs Temp Pulse Resp BP Pulse Ox 97.9 F 81 18 119/62 96 04/06/18 10:12 04/06/18 10:12 04/06/18 10:12 04/06/18 10:12 04/06/18 10:12 - Physical Exam General Appearance: Yes: Appropriately Dressed. No: Apparent Distress Neck: positive: Supple Respiratory/Chest: negative: Respiratory Distress Extremity: positive: Normal Inspection Integumentary: positive: Dry, Warm Neurologic: positive: core sucker II-XII NML intact, Fully Oriented, Alert, Normal Mood/ Affect, Motor Strength 5/5 (ambulating pruposely and slowly in ED) <Kaela Zee - Last Filed: 04/06/18 12:39> - Vital Signs Last Vital Signs Temp Pulse Resp BP Pulse Ox 97.9 F 81 18 119/62 96 04/06/18 10:12 04/06/18 10:12 04/06/18 10:12 04/06/18 10:12 04/06/18 10:12 <Manoj Aparicio - Last Filed: 04/09/18 09:23> Moderate Sedation - Procedure Monitoring Vital Signs: Procedure Monitoring Vital Signs Temperature 97.9 F 04/06/18 10:12 Pulse Rate 81 04/06/18 10:12 Respiratory Rate 18 04/06/18 10:12 Blood Pressure 119/62 04/06/18 10:12 O2 Sat by Pulse Oximetry (%) 96 04/06/18 10:12 <Kaela Zee - Last Filed: 04/06/18 12:39> - Procedure Monitoring Vital Signs: Procedure Monitoring Vital Signs Temperature 97.9 F 04/06/18 10:12 Pulse Rate 81 04/06/18 10:12 Respiratory Rate 18 04/06/18 10:12 Blood Pressure 119/62 04/06/18 10:12 O2 Sat by Pulse Oximetry (%) 96 04/06/18 10:12 <Manoj Aparicio - Last Filed: 04/09/18 09:23> ED Treatment Course - LABORATORY CBC & Chemistry Diagram: 04/06/18 11:11 04/06/18 11:11 <Kaela Zee - Last Filed: 04/06/18 12:39> - LABORATORY CBC & Chemistry Diagram: 04/06/18 11:11 04/06/18 11:11 - ADDITIONAL ORDERS Additional order review: 04/06/18 11:11 RBC 4.86 MCV 88.2 MCHC 34.3 RDW 13.7 MPV 9.5 D Neutrophils % 70.2 Lymphocytes % 18.0 Monocytes % 9.0 Eosinophils % 2.4 Basophils % 0.4 <Manoj Aparicio - Last Filed: 04/09/18 09:23> Medical Decision Making - Medical Decision Making 04/06/18 10:43 28 yo M, MS, takes betaseron, here p/w progressing b/l LE weakness since 01/08 w / multiple falls with no serous injuries . States he is having a difficult time walking and has to walk very slow. Pt has an outside neurologist, who he spoke to this a.m., who told patient to come to the ED for steroid infusion per patient. Patient denies any other acute symptoms at this time see exam MS flare -labs -neuro c/s for management -?admit 04/06/18 12:[address] Hudson of neurology, who recommends admitting for Solu- Medrol 250 every 6 hours for 3-5 days. Also requesting MRI brain and C-spine. This was discussed with patient who states he does not want to be admitted and declines overnight obs admission for MRI. States he wants to be discharged and go to [facility] because when he was seen there for MS flare in the past, he did not have to be admitted and instead was able to go to the MS infusion facility to get IV steroids daily. Chem hemolyzed, pt made aware and declines blood redraw. No IV in place. AMA form signed <Kaela Zee - Last Filed: 04/06/18 12:39> - Medical Decision Making 04/09/18 09:23 The patient was seen and evaluated in conjunction with KAPIL Zee under my direct supervision, ancillary studies were reviewed. I agree with the plan as outlined by KAPIL Zee . <Manoj Aparicio - Last Filed: 04/09/18 09:23> *DC/Admit/Observation/Transfer <Kaela Zee - Last Filed: 04/06/18 12:39> <Manoj Aparicio - Last Filed: 04/09/18 09:23> Diagnosis at time of Disposition: Weakness - Discharge Dispostion Disposition: AGAINST MEDICAL ADVICE - Referrals Referrals: Warren Alba [Primary Care Provider] - - Patient Instructions Additional Instructions: You were seen in the ED for progressive weakness of your lower legs. Labs were ordered. We discussed case with neurology who wanted you to be admitted for steroids every 6 hours and for you have an MRI. However, you declined to be admitted and requested to be discharged so that you can go to [facility] [place]. - Post Discharge Activity
[2018-04-06 12:01] LABS: BASO % 0.4 % (0-2.0); EOS % 2.4 % (0-4.5); HEMATOCRIT 42.9 % (35.4-49); HEMOGLOBIN 14.7 GM/dL (11.7-16.9); MCH 30.3 pg (25.7-33.7); MCHC 34.3 g/dl (32.0-35.9); MEAN CELL VOLUME 88.2 fl (80-96); MEAN PLT VOLUME 9.5 fl (7.5-11.1); NEUT % 70.2 % (42.8-82.8); PLATELET COUNT 324 K/MM3 (134-434); RBC 4.86 M/mm3 (4.00-5.60); RDW 13.7 % (11.9-15.9); WHITE BLOOD COUNT 9.3 K/mm3 (4.0-10.0)
[2018-04-06] MEDS ORDERED: methylPREDNISolone NA SUCC 125 MG/2 ML VIAL IVPUSH ONE (12:30)
== END 2018-04-06 12:30 | disposition left against medical advice (07) ==
LOC: JER 09:45
DX: G35 Multiple sclerosis (principal)
CPT/HCPCS: 36415; 85025; 99281-25